=== PATIENT | male | born 1965 | race Caucasian/White ===

== ENCOUNTER 2020-05-23 09:15 | Inpatient (IN) | payer OTHER ==
[~2020-05-23] VITALS: Ht 182.9 cm; Wt 93.0 kg
--- OUTSIDE RECORDS SUMMARY | ~2020-05-23 | XMS | Encounter Summary ---
Demographics + + + | Address | [address] | | | [place] [address] | + + + | Home Phone | | + + + | Preferred Language | Unknown | + + + | Marital Status | | + + + | Zoroastrian Affiliation | Unknown | + + + | Race | Unknown | + + + | Ethnic Group | Unknown | + + + Author + + + | Author | [facility] | | | and [place] | + + + | Organization | [facility] | | | and [place] | + + + | Address | Unknown | + + + | Phone | Unavailable | + + + Support +---------+ +---------+ + | Name | Relationship | Address | Phone | +---------+ +---------+ + | Unk Unk | ECON | Unknown | | +---------+ +---------+ + Care Team Providers + +------+ + | Care Out Patient Therapist Name | Role | Phone | + +------+ + | Joseph Atkins DO | PCP | | + +------+ + Reason for Referral Evaluate & Treat (Routine) +--------+ + + + + + | Status | Reason | Specialty | Diagnoses / | Referred By | Referred To | | | | | Procedures | Contact | Contact | +--------+ + + + + + | Closed | Specialty | Sleep | Diagnoses | [facility] | | | Services | Medicine | [facility] | MD Paulette | Center [address] | | | Required | | (obstructive | [address] | [place] | | | | | sleep | [address] [place] | [place], | | | | | apnea) | [place] | [place] [address] | | | | | Procedures | [address] | Phone: | | | | | [place] [facility] | Phone: | [phone] | | | | | STUDY, | [phone] | Fax: | | | | | UNATTENDED, | Fax: | [phone] | | | | | SIMUL RECORD | [phone] | | | | | | HR/O2 | | | | | | | SAT/RESP | | | | | | | FLOW/RESP | | | | | | | EFF HST | | | +--------+ + + + + + Reason for Visit +---------+ + | Reason | Comments | +---------+ + | Consult | | +---------+ + Evaluate & Treat (Routine) +--------+--------+ + + + + | Status | Reason | Specialty | Diagnoses / | Referred By | Referred To | | | | | Procedures | Contact | Contact | +--------+--------+ + + + + | Closed | | Psychiatry & | Diagnoses | Wilbert, | [place], | | | | Neurology - | Obstructive | Joseph Leiva DO | MD [facility] | | | | Sleep | sleep apnea | [address] | | | | Medicine / | (adult) | Gael Ontiveros | [facility] | | | | Sleep | (pediatric) | [place], | [place] | | | | Medicine | consult | [place] [address] | [address] Phone: | | | | | [email or web address], no | Phone: | [phone] | | | | | ss, no | [phone] | Fax: | | | | | cpap/AO | | [phone] | | | | | Procedures | | | | | | | NEW PATIENT | | | +--------+--------+ + + + + Encounter Details +--------+---------+ + + + | Date | Type | Department | Care Team | Description | +--------+---------+ + + + | 02/12/ | Office | [facility] [place] | Paulette Peña MD | [facility] (obstructive | | 2018 | Visit | SLEEP DISORDER [address] | sleep apnea) | | | | [address] [place] | [place] | (Primary Dx) | | | | [place] [address] | [address] | | | | | [phone] | | | +--------+---------+ + + + Social History + + + +--------+------+ | Tobacco Use | Types | Packs/Day | Years | Date | | | | | Used | | + + + +--------+------+ | Former Smoker | Cigarettes | | | | + + + +--------+------+ + +---+---+---+ | Smokeless Tobacco: | | | | | Never Used | | | | + +---+---+---+ + + | Comments: he is on chantix and quit smoking recently | + + + + +---------+ + | Alcohol Use | Drinks/Week | oz/Week | Comments | + + +---------+ + | Yes | | | | + + +---------+ + + + + | Sex Assigned at | Date Recorded | | | | + + + | Not on file | | + + + documented as of this encounter Last Filed Vital Signs + + + + + | Vital Sign | Reading | Time Taken | Comments | + + + + + | Blood Pressure | 160/90 | 02/12/2018 1:20 PM | | | | | PDT | | + + + + + | Pulse | 95 | 02/12/2018 1:20 PM | | | | | PDT | | + + + + + | Temperature | - | - | | + + + + + | Respiratory Rate | 16 | 02/12/2018 1:20 PM | | | | | PDT | | + + + + + | Oxygen Saturation | 95% | 02/12/2018 1:20 PM | | | | | PDT | | + + + + + | Inhaled Oxygen | - | - | | | Concentration | | | | + + + + + | Weight | 110 kg (242 lb 8.1 | 02/12/2018 1:20 PM | | | | oz) | PDT | | + + + + + | Height | 180.3 cm (5' 11") | 02/12/2018 1:20 PM | | | | | PDT | | + + + + + | Body Mass Index | 33.82 | 02/12/2018 1:20 PM | | | | | PDT | | + + + + + documented in this encounter Patient Instructions Patient Instructions Paulette Peña MD - 02/12/2018 2:02 PM PDTFormatting of this note lanette ht be different from the original. Please: 1- Schedule your sleep study. An appointment will be made a few days after the sleep study so that we can discuss the results of the sleep study with you to determine how to best help you with your sleep issues. If you can't come to the sleep center on the night of your scheduled sleep study, please no tify us ( ). 2- Review the following sleep hygiene tips: - Awaken at nearly the same time ever day (less than 2 hours difference between work/school days and off/weekend days). Don't sleep in. - Obtain as much bright light as possible during your desired waking hours. - Minimize caffeine (coffee, tea, energy drinks, soft drinks, etc.) and limit to the hours immediately after awakening. - Eliminate or minimize smoking and alcohol consumption, especially near bedtime. - Minimize or eliminate napping (unless you are a good sleeper at night and you are really sleepy during the day). - Darken your environment an hour or two before bedtime. - Consider "unwinding" and "closing" your day about an hour before your anticipated bedtime . - Go to bed only when you are sleepy and no earlier than 9 hours before your anticipated wa ke time. - Good sleepers enjoy sleeping and know that not everyone sleeps well every night. The occa sional night of poor sleep happens to everyone and isn't something to worry about. It was very nice meeting you today and thank you for letting me take care of you. What Are Snoring and Obstructive Sleep Apnea? If you ve ever had a stuffed-up nose, you know the feeling of trying to breathe through a very narrow passageway. This is what happens in your throat when you snore. While you sleep , structures in your throat partly block your air passage. This makes the passage narrow and hard to breathe through. In some cases the entire passage may become blocked so you can t breathe at all. Then you haveobstructivesleep apnea. Snoring Obstructive sleep apnea Snoring If your throat structures are too large or the muscles relax too much during sleep, the air passage may be partly blocked for a while (temporarily). But over time the air gets past. A s air from the nose or mouth passes around this blockage, the throat structures vibrate. Thi s causes the familiar sound of snoring. This sound can be loud. Snorers may wake up others, or even themselves, during the night. Snoring gets worse as more and more of the air passage is blocked. Obstructive sleep apnea If the structurespartly orcompletely block the throat, air can t flow to the lungs at all. This is calledhypopnea (decreased breathing) orapnea (meaning no breathing ). The lungs aren t getting fresh air. So the brain tells the body to wake up just enough to tighten the muscles and unblock the air passage. With a loud gasp, breathing begins again. This process may be repeated over and over again during the night. This can make your sleep fragmentedwithlighter stagesof sleep. You won t remember waking up many times during the night. But due tolighter sleepyou will feel tired the next day. The lack of sleep a nd fresh air can also strain your lungs, heart, and other organs. This leads to problems suc h as high blood pressure, heart attack, or stroke. Problems in the nose and jaw Problems in the structure of the nose may block breathing. A crooked (deviated) septum or s wollen turbinates can make snoring worse or lead to apnea. Also, a receding jaw may make the tongue sit too far back. Then it s more likely to block the airway when you re asleep. Date Last Reviewed: 03/26/201719993307-6390 [employer]. [address] [place] [address], [place] [address]. All righ ts reserved. This information is not intended as a substitute for professional medical care. Always follow your healthcare professional's instructions. Continuous Positive Air Pressure (CPAP) A mask over the nose gently directs air into the throat to keep the airway open. Continuous positive air pressure (CPAP)uses gentle air pressure to hold the airway open. CPAP is often the most effective treatment for sleep apnea and severe snoring. It works very well for many people. But keep in mind that it can take several adjustments before the setu p is right for you. How CPAP works The CPAP machine is asmall portable pump that sits beside the bed. The pumpsends air through a hose, which is held over your nose alone, or nose and mouthby a mask.Mild air pressureis gently pushed through your airway. The air pressure nudges sagging tissues asid e. This widens the airway so you can breathe better. CPAP may be combined with other kinds o f therapy for sleep apnea. Types of air pressure treatments There are different types of CPAP. Your doctor or CPAP test lab technician will help you decide whic h type is best for you: Basic CPAPkeeps the pressure constant all night long. A bilevel device(BiPAP)providesmore pressure when you breathe in and less when you breathe out.A BiPAP machine also may be set to provide automatic breaths to maintain teddy thing if you stop breathing while sleeping. An autoCPAP deviceautomatically adjusts pressure throughout the night and in response to changes such as body position, sleep stage, and snoring. Date Last Reviewed: 03/26/201719993082-0052 [employer]. [address] [place] [id number]. All righ ts reserved. This information is not intended as a substitute for professional medical care. Always follow your healthcare professional's instructions. documented in this encounter Progress Notes Paulette Peña MD - 02/12/2018 1:30 PM PDT ID/CC: We are asked to Tom Bolton referred for consultation from Joseph Atkins for evalu ation of obstructive sleep apnea. Alejandro Bolton is a 52 y.o. year male old with history of hypertension, GERD, anxiety, an d obesity presenting with snoring, witnessed sleep apnea, and fatigue for evaluation of obst ructive sleep apnea. Mr. Davis has snored for at least 20 years and his his snoring is loud. He has been told that he stops breathing during sleep and he sometimes wakes up with gasping/choking. He has morning dry mouth and wakes up with dry mouth in the middle of the night and drinks water. He has heartburn and if he doesn't take omeprazole he can wake up with heartburn. He feels tired all the time and he has daytime sleepiness. He also has drowsy driving and can get drowsy in less than one hour drives. Denies morning headaches. He Sleeps on a flat bed and one pillow. He sleeps on his side or back. He gets average 8 hours of sleep per night. Does swing shifts and works from 2:30 PM to 11 PM. He usually goes to bed around 2 AM and falls asleep quickly. He wakes up a few times for her and once for urination, and usually goes back to sleep quickly. He wakes up around 11 AM and feels tired. On his days off. He wakes up around noon, and he goes to bed around 4 AM. Denies restless legs he has legs and feet cramps. ? Marietta Sleepiness Scale: 12 out of 24 ( score >11 clinnically significant for sleepiness ). ? - Insomnia Severity Index Score: 11 out of 28, suggesting subthreshold insomnia. 0-7 no clinically significant. 8-14 subthreshold insomnia 15-21 moderate insomnia 22-28 severe insomnia ADDITIONAL DATA: ? Sepulveda Depression Inventory: 18, consistent with mild to moderate depression ? Sepulveda Anxiety Inventory:21, moderate anxiety ? SF-36v2: Significant decline in VT and MH . PAST MEDICAL HISTORY No past medical history on file. PAST SURGICAL HISTORY No past surgical history on file. ALLERGIES No Known Allergies CURRENT MEDICATIONS Prior to Admission medications Medication Sig Start Date End Date Taking? Authorizing Provider ALPRAZolam (XANAX) 0.5 mg tablet Take 0.5 mg by mouth 3 times daily as needed for Anxiety. Yes Historical Provider, amLODIPine (NORVASC) 10 MG tablet Take 10 mg by mouth Daily. Yes Historical Provider, busPIRone (BUSPAR) 10 MG tablet Take 30 mg by mouth 3 times daily. Yes Historical Provide MD lakesha ergocalciferol (VITAMIN D-2) 50,000 units capsule Take 50,000 Units by mouth Once a week. Yes Historical Provider, lisinopril (PRINIVIL, ZESTRIL) 10 mg tablet Take 12.2 mg by mouth Daily. Yes Historical P MD anisha Loratadine 10 MG CAPS Take by mouth. Yes Historical Provider, meloxicam (MOBIC) 15 mg tablet Take 15 mg by mouth Daily. Yes Historical Provider, SOCIAL HISTORY - Lives alone. . 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 Currently takes chantix and quit 3 weeks ago - Other substances: never - Caffeine use: 1 cup of coffee per day. 2 cans of soda per day - Exercise: minimal - Eating habits: he eats mostly fast foods and package foods. Does not enough vegetables. D oes not eat fish regularly. FAMILY HISTORY No known family history of sleep apnea. REVIEW OF SYSTEMS Constitutional: + fatigue ENT: No nasal or sinus congestion. Card: No exertional substernal chest heaviness, Resp: No cough, No wheezing GI: + bloating, constipation. , + acid reflux : +nocturia MS: No back pain or neck pain Neuro: No headaches Psych: + anxiety Endocrine: No heat or cold intolerance Heme: No easy bruising or prolonged bleeding. PHYSICAL EXAMINATION BP 160/90 | Pulse 95 | Resp 16 | Ht 1.803 m (5' 11") | Wt 110 kg (242 lb 8.1 oz) | SpO 2 95% | BMI 33.82 kg/m , Neck Measurement: 18 in GEN: Well developed well nourished, pleasant, NAD HEENT: Sclerae anicteric. No ptosis. Oropharyngeal exam reveals Modified Mallampati grade3 airway with 1+ tonsils.big tongue. Tongue does not have scalloping. Thereis not retrognat hia. Patient does not have a high arched palate. CV: RRR, no m/r/g RESP: CTAB, no w/r/r EXT: No clubbing/cyanosis. NEURO: A&Ox3, speech fluent. face symmetric, uvula/tongue midline. . Normal casual gait. PSYCH: Appropriate affect. ASSESSMENT AND PLAN ROGELIO: This patient has several symptoms and risk factors for obstructive sleep apnea. I dis cussed them, and the pathophysiology of sleep apnea today, associated risks including heart attack and stroke with untreated severe sleep apnea, and association between obstructive sle ep apnea and hypertension, insulin resistance and diabetes, GERD, headaches, and mood and me brigitte problems. discussed diagnosis via polysomnography / [id number] sleep testing. Rai mahajan, I ordered a home sleep study, but informed him/her that if it was inconclusive, we will h ave to confirm it with diagnostic polysomnography. I also discussed treatment options for sleep apnea, including CPAP (gold standard), weight loss, mandibular advancement device, an d surgery. An appointment will be made a few days after the sleep study so that we can discu ss the results of the sleep study with patient. EDS: I also discussed the dangers of excessive daytime sleepiness in the context of driving or other dangerous activities. I counseled the patient to avoid all such activities when fe eling tired or sleepy. He indicated his understanding of this important recommendation. Encouraged increasing physical activity, and maintaining healthy eating habits. Discussed the importance of eating habits and diet, and that food is not just about calorie intake, an d food is information and medicine. Encouraged himto eat healthy clean foods with minimal fa st foods/processed foods: a rainbow of fruits and vegetables regularly(including root veget courtney), seeds/nuts, good protein including fish, and cut back on sugar. Thank you for the opportunity to participate in this patient's care. Portions of this chart may have been created with [employer] voice recognition software. Occasi onal wrong-word or sound-alike substitutions may have occurred due to the inherent gavin itations of voice recognition software. Please read the chart carefully and recognize, using context, where these substitutions have occurred. Jewell Sim, Medical As sisjovannyt - 02/12/2018 1:30 PM PDTFormatting of this note might be different from the origina l. 02/12/18 1300 Sepulveda Depression Inventory-II Depression Score 18 - Mild depression Insomnia Severity Index Insomnia Severity Index 11 Marietta Sleepiness Scale Sitting and reading 1 Watching TV 3 Sitting, inactive in a public place (e.g. a theatre or a meeting) 1 As a passenger in a car for an hour without a break 1 Lying down to rest in the afternoon when circumstances permit 3 Sitting and talking to someone 0 Sitting quietly after a lunch without alcohol 2 In a car, while stopped for a few minutes in traffic 1 Total score 12 SF-36v2 Score PF 49.89 RP 50.42 BP 46.68 GH 46.05 VT 25.86 SF 47.31 RE 56.17 MH 35.17 PCS 49.47 MCS 39.43 documented in this enco unter Plan of Treatment + + +--------+ + + | Name | Type | Priori | Associated Diagnoses | Order Schedule | | | | ty | | | + + +--------+ + + | * [facility] - | Outpatient | Routin | ROGELIO (obstructive | Ordered: 02/12/2018 | | AMB Referral | Referral | e | sleep apnea) | | + + +--------+ + + documented as of this encounter Visit Diagnoses + + | Diagnosis | + + | ROGELIO (obstructive sleep apnea) - Primary Obstructive sleep apnea (adult) (pediatric) | + + documented in this encounter
--- OUTSIDE RECORDS SUMMARY | ~2020-05-23 | XMS | Encounter Summary ---
Demographics + + + | Address | [address] | | | [place] [address] | + + + | Home Phone | | + + + | Preferred Language | Unknown | + + + | Marital Status | | + + + | Presybeterian Affiliation | Unknown | + + + | Race | Unknown | + + + | Ethnic Group | Unknown | + + + Author + + + | Author | [facility] | | | and [place] | + + + | Organization | [facility] | | | and [place] | + + + | Address | Unknown | + + + | Phone | Unavailable | + + + Support +---------+ +---------+ + | Name | Relationship | Address | Phone | +---------+ +---------+ + | Unk Unk | ECON | Unknown | | +---------+ +---------+ + Care Team Providers + +------+ + | Care Gambreler Name | Role | Phone | + +------+ + | Joseph Atkins DO | PCP | | + +------+ + Reason for Visit + + + | Reason | Comments | + + + | CPAP Follow Up | | + + + Encounter Details +--------+---------+ + + + | Date | Type | Department | Care Team | Description | +--------+---------+ + + + | 03/11/ | Office | [facility] | Paulette Peña MD | ROGELIO (obstructive | | 2018 | Visit | SLEEP DISORDER [address] | [address] | sleep apnea) | | | | [address] | [place] [address] [address] | (Primary Dx) | | | | [place] [address] | [address] | | | | | [phone] | | | +--------+---------+ + + + [...] + + + | Blood Pressure | 140/80 | 03/11/2018 2:42 PM | | | | | PDT | | + + + + + | Pulse | 90 | 03/11/2018 2:42 PM | | | | | PDT | | + + + + + | Temperature | - | - | | + + + + + | Respiratory Rate | 16 | 03/11/2018 2:42 PM | | | | | PDT | | + + + + + | Oxygen Saturation | 97% | 03/11/2018 2:42 PM | | | | | PDT | | + + + + + | Inhaled Oxygen | - | - | | | Concentration | | | | + + + + + | Weight | 109.5 kg (241 lb 6.5 | 03/11/2018 2:42 PM | | | | oz) | PDT | | + + + + + | Height | - | - | | + + + + + | Body Mass Index | 33.67 | 02/12/2018 1:20 PM | | | | | PDT | | + + + + + documented in this encounter Patient Instructions Patient Instructions Paulette Peña MD - 03/11/2018 3:03 PM PDTFormatting of this note lanette ht be different from the original. - We will send a prescription for CPAP machine to your home care company. - Please start using your CPAP as directed. - Follow up with TATO Flores within 1-2 weeks. - Follow up with Tre Wallace PA-C afterwards. - Insurance compliance criteria: Once you received your machine, you have 90 days in which you must use your machine for 30 consecutive days and for 70% of those 30 days you must use your machine for >= 4 hours. Continuous Positive Airway Pressure (CPAP) Your healthcare provider has prescribed continuous positive airway pressure (CPAP) therapy for you. A CPAPdevice helps you breathe better at night. The device sends air through your nose or mouth when you breathe in to keep your air passages open. CPAP is: Used most often to treat sleep apnea and some other problems. (Sleep apnea is a chronic condition with periods of sleep in which you briefly stop breathing.) Safe and very effective. But it takes time to get used to the mask. Your healthcare provider, nurse, or medical supplier will give you tips for wearing and car ing for your CPAP device. General guidelines Recommendations include the following: It's very important not togive up! It takes time to get used to wearing the mask at [facility]. Practice using your CPAP device during the day, especially whenever you take a nap. Remember, there are several different types of masks. If you can t get used to your ma sk, ask your provider or medical supply company about trying another style. If you have nasal stuffiness or dryness when using your CPAP device, talk with your prov ider or medical supply company. There are ways to ease these problems. For example, your pro vider may recommend using a moistening nasal spray. Or the medical supply [employer] may recomm end a device with a humidifier. The goal is to use yourCPAP all night, every night, during all naps, and even when you travel. Keep your mask clean. Wash it with soap and water. Be sure to rinse the mask and tubing well with water to remove any soap. Let them air-dry completely before using. Make yourself comfortable when sleeping with CPAP. Try using extra pillows. Work with your [employer] supply company so that you know how to correctly use your CPAP. The company's maintenance representative will be able to help you: Use the CPAP correctly Troubleshoot any problems that come up Learn to clean and maintain the device Adjust to regular use of the CPAP The CPAP device settings are given as centimeters of water, or cm/H2O. Each person s pres sure settings are different. Your healthcare provider will tell you what settings to use. Ne bal change your CPAP pressure setting unless your provider tells you to. CPAP cm/H20 pressure when you breathe in Date Last Reviewed: 12/25/201519999985-6643 [employer]. [address] [place] [address]. All righ ts reserved. This information is not intended as a substitute for professional medical care. Always follow your healthcare professional's instructions. documented in this encounter Progress Notes Paulette Peña MD - 03/11/2018 2:45 PM PDT The patient comes in to discuss sleep study results. My interpretation of the patient's s leep study, which I have reviewed with the patient, is as follows: Unattended, Multiparameter, Sleep Apnea Test for Alejandro Bolton performed on February 19, 2018. Identifying Information: Alejandro Bolton is a 52 y.o. male who is referred for unattended, mu lti-parameter, sleep apnea test because of probable Obstructive Sleep Apnea. He has a histor y of hypertension, GERD, anxiety, and obesitypresenting with snoring, witnessed sleep ap mehnaz, and fatigue for evaluation of obstructive sleep apnea. BMI: 34 Technical Information: The study was performed on February 19, 2018 using the [employer] d equipment with [employer] Version 9 Software. The study was hand scored and hand analyzed. The following physiologic parameters were monitored: snoring, body position, oxygen saturati on, heart rate, nasal airflow (PTAF), oral airflow (thermister) and thoracic and abdominal e ffort (RIP belts). EEG was not monitored and thus sleep staging was not performed. A sleep e fficiency of 100% was assumed for the purposes of calculating indices; this assumption can r esult in a significant underestimation of disease severity. Because EEG was not monitored, R espiratory Effort Related Arousals could not be enumerated; this can also result in underest imation of disease severity. The sensitivity for Obstructive Sleep Apnea of this type of flex dy is high but the specificity is low. Definitions (The AASM Manual for the Scoring of Sleep and Associated Events, Version 2.3; 2 016): Apnea: There is a drop in the peak signal excursion by 90% or greater of pre-rich nt baseline using an oronasal thermal sensor, or an alternative apnea sensor and the duratio n of the 90% or greater drop in sensor signal is greater than or equal to 10 seconds. Obstructive Apnea: Event associated with continued or increased inspi ratory effort throughout the entire period of absent airflow. Central Apnea: Event associated with absent inspiratory effort throug hout the entire period of absent airflow. Because EEG is not monitored, Central Apneas canno t be scored with any degree of reliability on this type of sleep study. Mixed Apnea: Event associated with absent inspiratory effort in the i nitial portion of the event followed by resumption of inspiratory effort during the second p ortion of the event. Because EEG is not monitored, mixed apneas are not reliably scored on t his type of study. Hypopnea: The peak signal excursions drop by 30% or more of pre-event baseline u sing nasal pressure (diagnostic study), PAP device flow (titration study), or an alternative hypopnea sensor (diagnostic study). The duration of the 30% or greater drop in signal excur naman must last for 10 seconds or longer. The event is associated with a 3% or greater oxygen desaturation from pre-event baseline or the event is associated with an arousal. Respiratory Event Related Arousal: Because EEG is not recorded, Respiratory Even t Related Arousal's cannot be enumerated. The Respiratory Event Index (WING) is the term used to represent the frequency of apneas and hypopneas derived from Home Sleep Apnea Testing(HSAT). It is a surrogate for AHI. Results: Data collection commenced at 02:52 on 2017 and data collection terminated at 11:14 on February 19, 2018. During the 501.5 minutes of index study time there were 144 obst ructive apneas, 2 central apneas, 1 mixed apneas and 341 hypopneas. The WING was 58.4 which i s severely elevated. Relative time in supine position was 57.8%. The events were worsened in the supine position with WING of 73.2. However, non-supine WING was also severe at 38.. Mean oxygen oxygen saturation was 91%, oneil saturation was 69%, and patient spent 25.5% of time( 125.3 minutes) below 90%. 3 %Oxygen desaturation index was 59.5and was severely eleva jie. Average heart rate was 91 BPM. Interpretation: This home sleep apnea testing (HSAT) showed sleep apnea which was obstructi ve in nature, and it was severe in frequency of events, and severe in frequency of desatura tions. Oneil saturation was 69%, and patient spent 125.3 minutes of time below 90%. The flex dy was technically an adequate study. Recommendations: 1. A trial of auto-CPAP at 5-20 cm H2O. 2. Weight management. Today, I discussed the above results in detail with patient. he is interested in trial of C PAP. Insurance compliance criteria was discussed. Also again encouraged him to maintain regular physical activity and healthy eating habits. Vitals: 03/11/18 1442 BP: 140/80 Pulse: 90 Resp: 16 PainSc: 0 - No pain Plan: Start auto CPAP at 5-20 cm H2O with patient's preference mask. Follow-up with TATO Velasquez in 1-2 weeks after starting Pap therapy. Follow-up with Tre Wallace PA-C afterwards. I spent 15 minutes face to face with the patient, with over 50% spent in counseling and/or coordination of care regarding sleep apnea. documented in this enco unter Plan of Treatment Not on filedocumented as of this encounter Visit Diagnoses + + | Diagnosis | + + | ROGELIO (obstructive sleep apnea) - Primary Obstructive sleep apnea (adult) (pediatric) | + + documented in this encounter"
--- OUTSIDE RECORDS SUMMARY | ~2020-05-23 | XMS | Encounter Summary ---
Demographics + + + | Address | [address] | | | [place] [address] | + + + | Home Phone | | + + + | Preferred Language | Unknown | + + + | Marital Status | | + + + | Muslim Affiliation | Unknown | + + + | Race | White | + + + | Ethnic Group | Not or | + + + Author + + + | Organization | Unknown | + + + | Address | Unknown | + + + | Phone | Unavailable | + + + Support + + +---------+ + | Name | Relationship | Address | Phone | + + +---------+ + | Lora Bolton | ECON | Unknown | | + + +---------+ + Care Team Providers + +------+ + | Care Heel Washer Stringing Machine Operator Name | Role | Phone | + +------+ + PCP | Unavailable | + +------+ + Encounter Details +--------+ + + + + | Date | Type | Department | Care Team | Description | +--------+ + + + + | 08/04/ | Results | | Tre Saavedra | | | 2002 | Only | | [address] | | | | | | [place], | | | | | | [place] [address] | | +--------+ + + + + Social History + +-------+ +--------+------+ | Tobacco Use | Types | Packs/Day | Years | Date | | | | | Used | | + +-------+ +--------+------+ | Never Assessed | | | | | + +-------+ +--------+------+ + + + | Sex Assigned at | Date Recorded | | | | + + + | Not on file | | + + + documented as of this encounter Plan of Treatment Not on filedocumented as of this encounter Procedures + +--------+ + + + | Procedure Name | Priori | Date/Time | Associated Diagnosis | Comments | | | ty | | | | + +--------+ + + + | COMPLETE METABOLIC | Routin | 08/04/2003 | | Results for this | | SET | e | 9:20 AM | | procedure are in the | | (NA,K,CL,CO2,BUN,CRE | | PST | | results section. | | AT,GLUC,CA,AST,ALT,B | | | | | | LAVERNE TOTAL,ALK | | | | | | PHOS,ALB,PROT TOTAL) | | | | | + +--------+ + + + | CBC ONLY | Routin | 08/04/2003 | | Results for this | | | e | 9:20 AM | | procedure are in the | | | | PST | | results section. | + +--------+ + + + documented in this encounter Results CBC ONLY WITH PLATELET (08/04/2003 9:20 AM PST) + +---------+ + + + | Component | Value | Ref Range | Performed | Pathologist | | | | | At | Signature | + +---------+ + + + | WHITE CELL | 5.4 | 4.4 - 11.0 K/cu | [facility] | | | COUNT | | mm | DEPARTMENT | | | | | | OF | | | | | | PATHOLOGY | | + +---------+ + + + | RED CELL | 5.18 | 4.20 - 5.90 | [facility] | | | COUNT | | M/cu mm | DEPARTMENT | | | | | | OF | | | | | | PATHOLOGY | | + +---------+ + + + | HEMOGLOBIN | 15.9 | 13.0 - 17.5 | [facility] | | | | | g/dL | DEPARTMENT | | | | | | OF | | | | | | PATHOLOGY | | + +---------+ + + + | HEMATOCRIT | 46.9 | 38.0 - 50.4 % | [facility] | | | | | | DEPARTMENT | | | | | | OF | | | | | | PATHOLOGY | | + +---------+ + + + | MCV | 90.6 | 80.0 - 96.0 fL | [facility] | | | | | | DEPARTMENT | | | | | | OF | | | | | | PATHOLOGY | | + +---------+ + + + | MCH | 30.7 | 28.5 - 32.3 pg | [facility] | | | | | | DEPARTMENT | | | | | | OF | | | | | | PATHOLOGY | | + +---------+ + + + | MCHC | 33.8 | 33.4 - 35.5 | [facility] | | | | | g/dL | DEPARTMENT | | | | | | OF | | | | | | PATHOLOGY | | + +---------+ + + + | RDW | 12.5 | 11.5 - 15.0 % | [facility] | | | | | | DEPARTMENT | | | | | | OF | | | | | | PATHOLOGY | | + +---------+ + + + | PLATELET | 253 | 150 - 400 K/cu | [facility] | | | COUNT | | mm | DEPARTMENT | | | | | | OF | | | | | | PATHOLOGY | | + +---------+ + + + | MPV | 7.0 (L) | 7.4 - 10.4 fL | [facility] | | | | | | DEPARTMENT | | | | | | OF | | | | | | PATHOLOGY | | + +---------+ + + + + + | Specimen | + + | | + + + + + + + | Performing | Address | City/State/Zipcode | Phone Number | | Organization | | | | + + + + + | [facility] | [address] | [place] [address] | | | PATHOLOGY | [address] | | | + + + + + | [facility] | [address] | [place] [address] | | | PATHOLOGY | [address] | | | + + + + + COMP METABOLIC SET (08/04/2003 9:20 AM PST) + +---------+ + + + | Component | Value | Ref Range | Performed | Pathologist | | | | | At | Signature | + +---------+ + + + | GLUCOSE, | 114 (H) | 65 - 110 mg/dL | [facility] | | | PLASMA | | | DEPARTMENT | | | (LAB) | | | OF | | | | | | PATHOLOGY | | + +---------+ + + + | BUN, PLASMA | 9 | 6 - 20 mg/dL | [facility] | | | (LAB) | | | DEPARTMENT | | | | | | OF | | | | | | PATHOLOGY | | + +---------+ + + + | CREATININE | 0.9 | 0.7 - 1.3 mg/dL | [facility] | | | PLASMA | | | DEPARTMENT | | | (LAB) | | | OF | | | | | | PATHOLOGY | | + +---------+ + + + | TOTAL | 7.9 | 6.1 - 7.9 g/dL | [facility] | | | PROTEIN, | | | DEPARTMENT | | | PLASMA | | | OF | | | (LAB) | | | PATHOLOGY | | + +---------+ + + + | ALBUMIN, | 4.2 | 3.5 - 4.7 g/dL | [facility] | | | PLASMA | | | DEPARTMENT | | | (LAB) | | | OF | | | | | | PATHOLOGY | | + +---------+ + + + | CALCIUM, | 9.5 | 8.5 - 10.5 | [facility] | | | PLASMA | | mg/dL | DEPARTMENT | | | (LAB) | | | OF | | | | | | PATHOLOGY | | + +---------+ + + + | BILIRUBIN | 1.1 | 0.3 - 1.2 mg/dL | [facility] | | | TOTAL | | | DEPARTMENT | | | | | | OF | | | | | | PATHOLOGY | | + +---------+ + + + | ALK PHOS | 97 | 53 - 128 U/L | [facility] | | | | | | DEPARTMENT | | | | | | OF | | | | | | PATHOLOGY | | + +---------+ + + + | AST(SGOT) | 39 | 15 - 41 U/L | [facility] | | | | | | DEPARTMENT | | | | | | OF | | | | | | PATHOLOGY | | + +---------+ + + + | SODIUM, | 137 | 136 - 145 | [facility] | | | PLASMA | | mmol/L | DEPARTMENT | | | (LAB) | | | OF | | | | | | PATHOLOGY | | + +---------+ + + + | POTASSIUM, | 3.9 | 3.5 - 5.1 | [facility] | | | PLASMA | | mmol/L | DEPARTMENT | | | (LAB) | | | OF | | | | | | PATHOLOGY | | + +---------+ + + + | CHLORIDE, | 102 | 98 - 107 mmol/L | [facility] | | | PLASMA | | | DEPARTMENT | | | (LAB) | | | OF | | | | | | PATHOLOGY | | + +---------+ + + + | TOTAL CO2, | 29 | 23 - 29 mmol/L | [facility] | | | PLASMA | | | DEPARTMENT | | | (LAB) | | | OF | | | | | | PATHOLOGY | | + +---------+ + + + | ALT (SGPT) | 70 (H) | 13 - 48 U/L | [facility] | | | | | | DEPARTMENT | | | | | | OF | | | | | | PATHOLOGY | | + +---------+ + + + + + | Specimen | + + | | + + + + + + + | Performing | Address | City/State/Zipcode | Phone Number | | Organization | | | | + + + + + | [facility] | [address] | [place] [address] | | | PATHOLOGY | [address] | | | + + + + + | [facility] | [address] | [place] [address] | | | PATHOLOGY | [address] | | | + + + + + documented in this encounter Visit Diagnoses Not on filedocumented in this encounter"
--- OUTSIDE RECORDS SUMMARY | ~2020-05-23 | XMS | Encounter Summary ---
Demographics + + + | Address | [address] | | | [place] [address] | + + + | Home Phone | | + + + | Preferred Language | Unknown | + + + | Marital Status | | + + + | Islam Affiliation | Unknown | + + + [...] Team Providers + +------+ + | Care Actuarial Consultant Name | Role | Phone | + +------+ + PCP | Unavailable | + +------+ + Encounter Details +--------+ + + + + | Date | Type | Department | Care Team | Description | +--------+ + + + + | 08/04/ | Office | | Report, Outpatient | Progress Note | | 2002 | Visit-Trans | | Consultation | | | | cribed | | | | +--------+ + + + [...] + + documented as of this encounter Progress Notes Interface, Diesel Locomotive Firer/Fireman In - 01/21/2006 3:05 AM PDT REFERRED FROM AND FAXED TO: Zeeshan Pace M.D. FAX NO: [phone] REFERRED TO: Tre Saavedra M.D. Colon and Rectal Surgery ATTENDING PHYSICIAN: Tre Saavedra M.D. 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 HISTORY OF PRESENT ILLNESS: Mr. Bolton is a 38-year-old gentleman who has had anal bleeding for a year. 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 The patient's symptoms slightly improved but he had persistent bleeding. He was tried on conservative measures including sitz baths, Metamucil and Nitroglycerin ointment but the fissure persisted. On June 16, 2003 he underwent a left lateral sphincterotomy, hemorrhoid ligation and cauterization of the fissure. Unfortunately he has persistent bleeding and occasional purulent drainage per rectum. He does not have any significant pain with defecation. He remains unhealed and is referred for evaluation and treatment. PAST MEDICAL HISTORY: GE reflux disease. CURRENT MEDICATIONS: Nexium once a day. ALLERGIES: None. SURGICAL HISTORY: As above. REVIEW OF SYSTEMS: He is a nonsmoker. He is with two children and lives in [place]. FAMILY HISTORY: Negative for colorectal cancer or inflammatory bowel disease. His mother had breast cancer and two of his sisters had JET DYEING MACHINE TENDER cancers, all of whom are living. Review of systems is otherwise negative. PHYSICAL EXAM: Patient is a well-nourished, well-developed male in no distress. Weight, 210 lb. Digital rectal examination was performed and demonstrates a chronic posterior anal ulcer. It does not appear to be a classic idiopathic anal fissure. Its edges are fairly indistinct and it is soft throughout. Direct palpation does not illicit significant tenderness. He does not have significant anal sphincter spasm. He has normal squeeze tone. I do not see an obvious external opening but the posterior anal canal is slightly boggy. ASSESSMENT: Chronic posterior anal ulcer. Biopsies from his colonoscopy failed to show any evidence of inflammatory bowel disease and he has no symptoms of diarrhea to raise any additional concerns about Crohn's disease. I suspect that this is either a persistent anal fissure or an occult smoldering sinus in towards the deep postanal space. Plan is to perform examination under anesthesia tomorrow. Based on the findings I will fix an anal fissure with either a repeat internal sphincterotomy or a sliding anoderm advancement flap from the outside. If this is a fistula, I will treat it based on its anatomy, which may require a staged procedure with a partial sphincterotomy and seton, followed several months later by a completion fistulotomy, were this to be a deep postanal space fistula. PARQ was performed with the patient. The risks include, but are not limited to, bleeding, infection, disturbances, incontinence, inability to identify the etiology of his symptoms and recurrence. The patient currently has no incontinence but understands the above risks and is willing to proceed. Bowel prep instructions are provided to the patient. I will order a CBC, CMP and have him go through the preadmission testing clinic later today. Tre Saavedra M.D. [id number] cc: ZEESHAN PACE MD [address] [facility] [place] [id number] signed by Interface, Diesel Locomotive Firer/Fireman In at 01/21/2006 3:0 5 AM PDTdocumented in this encounter Plan of Treatment Not on filedocumented as of this encounter Visit Diagnoses Not on filedocumented in this encounter"
--- OUTSIDE RECORDS SUMMARY | ~2020-05-23 | XMS | Encounter Summary ---
Demographics + + + | Address | [address] | | | [place] [address] | + + + | Home Phone | | + + + | Preferred Language | Unknown | + + + | Marital Status | | + + + | Orthodox Affiliation | Unknown | + + + | Race | Unknown | + + + | Ethnic Group | Unknown | + + + Author + + + | Author | [facility] | | | and [place] | + + + | Organization | [facility] | | | and [...] Team Providers + +------+ + | Care Eligibility Analyst Name | Role | Phone | + +------+ + | Joseph Atkins DO | PCP | | + +------+ + Reason for Visit + + + | Reason | Comments | + + + | CPAP Follow Up | Sleep Resource | + + + Encounter Details +--------+ + + + + | Date | Type | Department | Care Team | Description | +--------+ + + + + | 04/01/ | Clinical | [facility] | Paulette Peña MD | ROGELIO (obstructive | | 2018 | Support | SLEEP DISORDER [address] | [address] | sleep apnea) | | | | [address] [place] | [place] | (Primary Dx) | | | | [place] [address] | [address] | | | | | [phone] | | | +--------+ + + + + Social History + + [...] + + + | Blood Pressure | 124/64 | 04/01/2018 1:43 PM | | | | | PDT | | + + + + + | Pulse | 89 | 04/01/2018 1:43 PM | | | | | PDT | | + + + + + | Temperature | - | - | | + + + + + | Respiratory Rate | 16 | 04/01/2018 1:43 PM | | | | | PDT | | + + + + + | Oxygen Saturation | 98% | 04/01/2018 1:43 PM | | | | | PDT | | + + + + + | Inhaled Oxygen | - | - | | | Concentration | | | | + + + + + | Weight | 109.1 kg (240 lb 8.4 | 04/01/2018 1:43 PM | | | | oz) | PDT | | + + + + + | Height | 182.9 cm (6') | 04/01/2018 1:43 PM | | | | | PDT | | + + + + + | Body Mass Index | 32.62 | 04/01/2018 1:43 PM | | | | | PDT | | + + + + + documented in this encounter Progress Notes Timo Evans Neurodiagnostic Tech - 04/01/2018 2:00 PM PDTFormatting of this note migh t be different from the original. Clinical Sleep Support Visit Patient:Alejandro Bolton Date of :1965 Encounter Date: 04/01/2018 Reason for visit: Chief Complaint Patient presents with CPAP Follow Up Sleep Resource Patient was last seen in our clinic on 03/11/[address] Peña, referred to us by Dr. Atkins . PAP was ordered on 03/11/2018 from [facility]. Patient has been using PAP for 15 out of 15 nights, wearing the ResMed S-10 auto PAP with settings of 5 to 20, wearing the N-20 ma sk. 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 Arrives complaining of nasal dryness and inside nare soreness. We reviewed the humidity and I advised him to turn his hose and level up from 73/3 to 81/4. He agrees but is going t o go up slowly for adaptation. His mask fit very well, application and fit test were both go od. No other issues today. ~ Overall leak is 12 ~ Compliance >4 hours =86% with AHI of 2.4 ~ Average daily usage of 6:06 Original date of study was on 02/19/2018 that showed an AHI of 58.4 with a O2 Oneil of 69% w ith 125.3 minutes < 90%. Sleep hygiene reviewed with the patient included study results, all PAP unit instructions i ncluding humidity and cleaning, sleep wake cycles and a recommendation to wear PAP at all ti mes during his sleep. Plan for continuous PAP use: 1. Wear PAP any time you are sleeping 2. Continue with PAP indefinitely 3. Follow up with Tre THAYER in 4 weeks (due to schedule) with equipment Timo Evans RPSGT CSE Lisa new in this encounter Plan of Treatment Not on filedocumented as of this encounter Visit Diagnoses + + | Diagnosis | + + | ROGELIO (obstructive sleep apnea) - Primary Obstructive sleep apnea (adult) (pediatric) | + + documented in this encounter"
--- OUTSIDE RECORDS SUMMARY | ~2020-05-23 | XMS | Encounter Summary ---
Demographics + + + | Address | [address] | | | [place] [address] | + + + | Home Phone | | + + + | Preferred Language | Unknown | + + + | Marital Status | | + + + | Restorationism Affiliation | Unknown | + + + | Race | Unknown | + + + | Ethnic Group | Unknown | + + + Author + + + | Author | [facility] | | | and [place] | + + + | Organization | [facility] | | | and [...] Team Providers + +------+ + | Care Mentally Impaired Teacher Name | Role | Phone | + [...] Description | +--------+---------+ + + + | 10// | Office | [facility] | Tre Wallace PA | ROGELIO on CPAP (Primary | | 2018 | Visit | SLEEP DISORDER [address] | [address] | Dx) | | | | [address] [place] | [place] | | | | | [place] [address] | [address] | | | | | [phone] | | | +--------+---------+ + + + [...] + + + | Blood Pressure | 130/78 | 05/27/2018 1:54 PM | | | | | PDT | | + + + + + | Pulse | 79 | 05/27/2018 1:54 PM | | | | | PDT | | + + + + + | Temperature | - | - | | + + + + + | Respiratory Rate | 16 | 05/27/2018 1:54 PM | | | | | PDT | | + + + + + | Oxygen Saturation | 98% | 05/27/2018 1:54 PM | | | | | PDT | | + + + + + | Inhaled Oxygen | - | - | | | Concentration | | | | + + + + + | Weight | 112.4 kg (247 lb | 05/27/2018 1:54 PM | | | | 12.8 oz) | PDT | | + + + + + | Height | - | - | | + + + + + | Body Mass Index | 33.61 | 04/01/2018 1:43 PM | | | | | PDT | | + + + + + documented in this encounter Progress Notes Tre Wallace PA - 05/27/2018 2:00 PM PDT Subjective: Patient ID: Alejandro Bolton is a 53 y.o. male. HPI last office visit: 04/01/2018 date of HST: 02/19/2018 AHI: 58.4 RDI: O2%: 69% with 125.3 minutes below 90% Machine type: ResMed AirSense 10 Mask type: ResMed AirFit N20 nasal mask DME: [facility] [place] pressure: 5-20 cm Median: 10.1 cm 95%: 12.8 cm maximum: 13.1 cm Nights using CPAP: 30/30 % of nights >4 hours: 86% average usage (all nights): 5:26 average usage (nights used): 5:26 AHI: 1.3 Danyel comes in for CPAP compliance. He is doing well with his CPAP, wearing it regularly fo r the duration of his sleep. He has not had much difficulty adjusting to his mask, the pres sure or the process of using CPAP. He is sleeping better and feels more rested with more en ergy during the day. He says he has known that he has had apnea for years, but waited to be tested until recently. He is happy that he is now sleeping well. 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 He does not have any questions or concerns. We went through each of the settings on the CPAP, to ensure that there is a good understand ing of how to make changes to temperature, humidity and/or the ramp. He is comfortable with his current settings and is now comfortable making adjustments to the settings, if necessar y. I have discussed the download in detail. This shows that his sleep apnea is controlled, wi th an AHI of 1.3. It also shows that his leaks are controlled. It shows that he is wearing his CPAP >4 hours for 86% of the nights during 30 consecutive nights. Review of Systems Objective: BP 130/78 | Pulse 79 | Resp 16 | Wt 112.4 kg (247 lb 12.8 oz) | SpO2 98% | BMI 33.61 k g/m Physical Exam Assessment: Problem #1: OBSTRUCTIVE SLEEP APNEA (ECX10-F16.33) This is controlled with CPAP. He is doing well with his CPAP compliance. He has used his CPAP >4 hours for 86% of the nights for 30 consecutive nights. Plan: 1. He is to continue with CPAP indefinitely. I will follow up again in 3 months, sooner prn. At that time we will reassess with all jose ropriate paperwork. Twenty-five minutes were spent [id number], with the majority of time spent in counseling. Tre Wallace PA-C cc: Joseph Atkins DO documented in this enco unter Plan of Treatment Not on filedocumented as of this encounter Visit Diagnoses + + | Diagnosis | + + | ROGELIO on CPAP - Primary Obstructive sleep apnea (adult) (pediatric) | + + documented in this encounter"
--- OUTSIDE RECORDS SUMMARY | ~2020-05-23 | XMS | Encounter Summary ---
Demographics + + + | Address | [address] | | | [place] [address] | + + + | Home Phone | | + + + | Preferred Language | Unknown | + + + | Marital Status | | + + + | Scientology Affiliation | Unknown | + + + | Race | Unknown | + + + | Ethnic Group | Unknown | + + + Author + + + | Author | [facility] | | | and [place] | + + + | Organization | [facility] | | | and [...] Team Providers + +------+ + | Care Entertainment Usher Name | Role | Phone | + +------+ + | Allyson Haro | PCP | | + +------+ + Reason for Visit + + + | Reason | Comments | + + + | CPAP Follow Up | | + + + Encounter Details +--------+ + + + + | Date | Type | Department | Care Team | Description | +--------+ + + + + | 04/30/ | Virtual | [facility] | Ellie Goldstein | Obstructive sleep | | 2019 | Office | SLEEP DISORDER [address] | [address] | apnea treated with | | | Visit | [address] [place] [place] | [address] [place] | continuous positive | | | | [place] [address] | [place] [address] | airway pressure | | | | [phone] | [phone] | (CPAP) | | | | | | | +--------+ + + [...] + documented as of this encounter Progress Ellie Delgado, JOSE - 12/24/2019 2:30 PM PDTFormatting of this note might be diff erent from the original. [facility] [place] [place] [address] Ref: Joseph Atkins, DO CC: No chief complaint on file. History of the Present Illness:This is a 54 y.o. male who is following up after last seein issac [place] December 10, 2018. Other significant medical issues include hypertension, GERD, an xiety, and obesity. The patient's records are reviewed. The patient is interviewed via telep pravin from his home in [place], [place]. The patient verbally confirmed his choice to initi ate care by telephone due to the coronavirus pandemic and gave consent to receive care by giuliana jimenez. [employer] air view compliance report: Mr. Bolton uses device for 341 of the past 365 days (93%). He uses device for greater than or equal to 4 hours for 229 days (63%). He uses device for less than 4 hours for 112 days ( 31%). His average usage on total days is 4 hours 41 minutes. His average usage on days use d is 5 hours 1 minute. His median pressure is 9.4 cm H2O, the 95th percentile is 11.4, and the maximum is 12.6. His median leak is 11.7 L/min, 95th percentile is 32.3, and maximum wa s 48.5. His AHI is 1.7. Assessment: Mr. Bolton does not use his device when he is feeling congested. He has environ mental allergies to trouble him. He has been taking Flonase as needed. I discussed with danay dill the need to take Flonase daily to cover for maximum benefit. He is working with [facility] to get his replacement supplies. He has been satisfied with the service. He does not replace his parts as often as recommended. Discussed with danay dill how the peripherals have a lifespan and need to be replaced regularly to avoid excessive l eaks. He has occasional issues with leaks. He combats them by tightening his headgear. The patient is sleeping well. He is comfortable using CPAP and no longer takes it off with out realizing in the middle of the night. We discussed the download in detail. The downloa d shows that his sleep apnea is well controlled as well as his leaks. Today, 15 minutes were spent with the patient via telephone; the majority of the time was s pent counseling regarding CPAP usage. Plan: The patient will continue CPAP indefinitely. He will continue to work with [facility] to obtain replacement parts for his device. He will follow-up with us charlene laird 1 year or sooner as needed. Patient Active Problem List Diagnosis Anxiety Arthritis of hand Cramps of lower extremity Family history of allergic disorder Family history of arthritis Family history of cancer Family history of stroke Family history of malignant neoplasm of trachea, bronchus, and lung Fatigue Gastroesophageal reflux disease Genital herpes simplex Hypertensive disorder Impotence Insomnia Male hypogonadism Pain in wrist Spasm of back muscles Suprapubic pain Pain in thumb joint with movement Tinea cruris Tobacco user Upper respiratory infection Parts of this note were dictated using [employer] voice recognition software. Occasional wrong - word or sound-alike substitutions may have occurred due to the inherent limitations of [employer]ar[employer] ce recognition software. Please read the chart carefully and recognize, using contextsahara these substitutions have occurred. documented in this encounter Plan of Treatment Not on filedocumented as of this encounter Visit Diagnoses + + | Diagnosis | + + | Obstructive sleep apnea treated with continuous positive airway pressure (CPAP) | + + documented in this encounter"
--- OUTSIDE RECORDS SUMMARY | ~2020-05-23 | XMS | Encounter Summary ---
Demographics + + + | Address | [address] | | | [place] [address] | + + + | Home Phone | | + + + | Preferred Language | Unknown | + + + | Marital Status | | + + + | Oriental Orthodox Affiliation | Unknown | + + [...] Team Providers + +------+ + | Care Network Cable Installer Name | Role | Phone | + [...] Description | +--------+---------+ + + + | 04/17/ | Office | [facility] | Tre Wallace PA | ROGELIO on CPAP (Primary | | 2019 | Visit | SLEEP DISORDER [address] | [address] | Dx) | | | | [address] [place] | [place] | | | | | [place] [address] | [address] | | | | | [phone] | | | +--------+---------+ + + + [...] + + + | Blood Pressure | 132/90 | 12/10/2018 2:41 PM | | | | | PDT | | + + + + + | Pulse | 81 | 12/10/2018 2:41 PM | | | | | PDT | | + + + + + | Temperature | - | - | | + + + + + | Respiratory Rate | 16 | 12/10/2018 2:41 PM | | | | | PDT | | + + + + + | Oxygen Saturation | 98% | 12/10/2018 2:41 PM | | | | | PDT | | + + + + + | Inhaled Oxygen | - | - | | | Concentration | | | | + + + + + | Weight | 110.2 kg (242 lb | 12/10/2018 2:41 PM | | | | 15.2 oz) | PDT | | + + + + + | Height | - | - | | + + + + + | Body Mass Index | 32.95 | 04/01/2018 1:43 PM | | | | | PDT | | + + + + + documented in this encounter Progress Notes Tre Wallace PA - 12/10/2018 3:00 PM PDT Subjective: Patient ID: Alejandro Bolton is a 53 y.o. male. HPI last office visit: 05/27/2018 date of HST: 02/19/2018 AHI: 58.4 RDI: O2%: 69% with 125.3 minutes below 90% Machine type: ResMed AirSense 10 Mask type: ResMed AirFit N20 nasal mask DME: [facility] [place] pressure: 5-20 cm Median: 10.1 cm 95%: 12.2 cm maximum: 13.5 cm Nights using CPAP: 194/197 % of nights >4 hours: 86% 59% average usage (all nights): 5:26 4:24 average usage (nights used): 5:26 4:29 AHI: 1.4 Danyel comes in for CPAP compliance. He is doing pretty well with his CPAP usage. He is sle eping better and feels more rested with more energy during the day. He says he has known th at he has had apnea for years, but waited to be tested until recently. 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 He is taking off his mask without knowing it on many nights. He is sleeping better and feels more rested with more energy during the day, even when he does n't wear it for the duration of his sleep. He thinks he may take off his mask because of le aks when moving. We discussed when he is able to replace his equipment. We also discussed the recommended cleaning schedule for his equipment. I have discussed the download and results of the paperwork in detail. He is unchanged or i mproved in nearly all categories, with no areas of concern. The download shows that his sle ep apnea is controlled, with an AHI of 1.4. It also shows that his leaks are controlled. Review of Systems Objective: BP 132/90 | Pulse 81 | Resp 16 | Wt 110.2 kg (242 lb 15.2 oz) | SpO2 98% | BMI 32.95 k g/m Physical Exam Assessment: Problem #1: OBSTRUCTIVE SLEEP APNEA ([id number]-G14.33) This is controlled with CPAP. He is wearing his CPAP regularly, but takes off his mask dur ing the night without knowing it on many nights. Plan: 1. He is to continue with CPAP indefinitely. 2. I have recommended that he work toward wearing his CPAP 100% of the time he is asleep. 3. Touch base with medical supplier twice per year to ensure that all equipment is satisfa ctory. I will follow up again in 1 year, sooner prn. At that time we will reassess with all appro priate paperwork. Fifteen minutes were spent [id number], with the majority of time spent in counseling. Tre Wallace PA-C cc: Joseph Atkins DO ewell Woods, Medical As sistant - 12/10/2018 3:00 PM PDTFormatting of this note might be different from the origina l. 12/10/18 1400 [place] Depression Inventory-II Depression Score 15 - Mild depression Insomnia Severity Index Insomnia Severity Index 10 Elverta Sleepiness Scale 1. Sitting and reading 2 2. Watching TV 3 3. Sitting, inactive in a public place (e.g. a theatre or a meeting) 2 4. As a passenger in a car for an hour without a break 1 5. Lying down to rest in the afternoon when circumstances permit 3 6. Sitting and talking to someone 1 7. Sitting quietly after a lunch without alcohol 2 8. In a car, while stopped for a few minutes in traffic 1 Total score 15 SF-36v2 Score PF 44.15 RP 52.66 BP 51.51 GH 40.35 VT 31.8 SF 42.3 RE 52.69 MH 40.4 PCS 47.66 MCS 41.17 documented in this enco unter Plan of Treatment Not on filedocumented as of this encounter Visit Diagnoses + + | Diagnosis | + + | ROGELIO on CPAP - Primary Obstructive sleep apnea (adult) (pediatric) | + + documented in this encounter"
--- OUTSIDE RECORDS SUMMARY | ~2020-05-23 | XMS | Clinical Summary ---
Demographics + + + | Address | [address] | | | [place] [address] | + + + | Home Phone | | + + + | Preferred Language | Unknown | + + + | Marital Status | | + + + | Lutheran Affiliation | Unknown | + + + [...] Team Providers + +------+ + | Care Senior Analysis Specialist Name | Role | Phone | + +------+ + PCP | Unavailable | + +------+ + Source Comments [facility] is fully live on both EpicCare Ambulatory and EpicCare InPatient.[facility] Allergies Not on File Medications Not on file Active Problems Not on file Social History + +-------+ +--------+------+ | Tobacco [...] on file | | + + + Last Filed Vital Signs Not on file Plan of Treatment + + +-------+ + | Health Maintenance | Due Date | Last | Comments | | | | Done | | + + +-------+ + | Influenza (Flu) | | | | | vaccination (#1) | 0 | | | + + +-------+ + | Pneumococcal | Aged Out | | No longer eligible based on patient's age | | vaccination | | | to complete this topic | + + +-------+ + Results Not on filefrom Last 3 Months"
--- OUTSIDE RECORDS SUMMARY | ~2020-05-23 | XMS | Encounter Summary ---
Demographics + + + | Address | [address] | | | [place] [address] | + + + | Home Phone | | + + + | Preferred Language | Unknown | + + + | Marital Status | | + + + | Anabaptism Affiliation | Unknown | + + + | Race | Unknown | + + + | Ethnic Group | Unknown | + + + Author + + + | Author | [facility] | | | and [place] | + + + | Organization | [facility] | | | and [...] Team Providers + +------+ + | Care Boxing And Pressing Supervisor Name | Role | Phone | + +------+ + | Joseph Atkins DO | PCP | | + +------+ + Reason for Visit + +--------+ + | Reason | Onset | Comments | | | Date | | + +--------+ + | Follow-up | 10/21/ | | | | 2020 | | + +--------+ + Encounter Details +--------+ + + + + | Date | Type | Department | Care Team | Description | +--------+ + + + + | 10/21/ | Telephone | [facility] | Tre Wallace PA | Follow-up | | 2020 | | SLEEP DISORDER [address] | [address] | | | | | [address] [place] | [place], [place] | | | | | [place] [address] | [address] | | | | | [phone] | | | +--------+ + + + [...] + + documented as of this encounter Miscellaneous Notes Telephone Encounter - Jewell Woods Horse Racer - 11/03/2019 1:07 PM PDTCalled the pa tient and left a message to call us back. I will try back in a few days. Electronically sign ed by Jewell Woods Horse Racer at 11/03/2019 1:08 PM PDTTelephone Encounter - Casey Woods, Horse Racer - 10/21/2019 2:27 PM PSTCalled the patient to schedule his one year follow up with [facility] and left a message to call us back. I will try back in a few days. docum ented in this encounter Plan of Treatment Not on filedocumented as of this encounter Visit Diagnoses Not on filedocumented in this encounter"
--- OUTSIDE RECORDS SUMMARY | ~2020-05-23 | XMS | Encounter Summary ---
Demographics + + + | Address | [address] | | | [place] [address] | + + + | Home Phone | | + + + | Preferred Language | Unknown | + + + | Marital Status | | + + + | Denominational Affiliation | Unknown | + + + | Race | Unknown | + + + | Ethnic Group | Unknown | + + + Author + + + | Author | [facility] | | | and [place] | + + + | Organization | [facility] | | | and [...] Team Providers + +------+ + | Care Youth Care Professional Name | Role | Phone | + +------+ + | Joseph Atkins DO | PCP | | + +------+ + Reason for Visit Evaluate & Treat (Routine) +--------+ + + [...] | (obstructive | [address] | [place] | | | | | sleep | [place] | [place], | | | | | apnea) | [place] | [place] [address] | | | | | Procedures | [id number] | Phone: | | | | | [place] [facility] | Phone: | [phone] | | | | | STUDY, | [phone] | Fax: | | | | | UNATTENDED, | Fax: | [phone] | | | | | SIMUL RECORD | [phone] | | | | | | HR/O2 | | | | | | | SAT/RESP | | | | | | | FLOW/RESP | | | | | | | EFF HST | | | +--------+ + + + + + Encounter Details +--------+ + + + + | Date | Type | Department | Care Team | Description | +--------+ + + + + | 02/18/ | Hospital | [facility] | Paulette Peña MD | ROGELIO (obstructive | | 2018 - | Encounter | [facility] | [address] | sleep apnea) | | | | CENTER [address] | [place] | | | 02/19/ | | [place] | [id number] | | | 2018 | | [address] | | | | | | [phone] | | | +--------+ + + + [...] + + documented as of this encounter Medications at Time of Discharge + + + +---------+--------+ + | Medication | Sig | Dispensed | Refills | Start | End Date | | | | | | Date | | + + + +---------+--------+ + | ALPRAZolam (XANAX) | Take 0.5 mg by mouth | | 0 | | | | 0.5 mg tablet | 3 times daily as | | | | | | | needed for Anxiety. | | | | | + + + +---------+--------+ + | amLODIPine | Take 10 mg by mouth | | 0 | | | | (NORVASC) 10 MG | Daily. | | | | | | tablet | | | | | | + + + +---------+--------+ + | busPIRone (BUSPAR) | Take 30 mg by mouth | | 0 | | | | 10 MG tablet | 3 times daily. | | | | | + + + +---------+--------+ + | ergocalciferol | Take 50,000 Units by | | 0 | | | | (VITAMIN D-2) 50,000 | mouth Once a week. | | | | | | units capsule | | | | | | + + + +---------+--------+ + | Loratadine 10 MG | Take by mouth. | | 0 | | | | CAPS | | | | | | + + + +---------+--------+ + | meloxicam (MOBIC) | Take 15 mg by mouth | | 0 | | | | 15 mg tablet | Daily. | | | | | + + + +---------+--------+ + | lisinopril | Take 12.2 mg by | | 0 | | | | (PRINIVILMEDARDOSTRIL) | mouth Daily. | | | | 8 | | 10 mg tablet | | | | | | + + + +---------+--------+ + documented as of this encounter Procedure Notes Paulette Peña MD - 02/24/2018 8:30 AM PDTAssociated Order(s): SLEEP STUDY HOME SLEEP TEST Pre-Procedure Diagnose(s): ROGELIO (obstructive sleep apnea)Post-Procedure Diagnose(s): ROGELIO (obs tructive sleep apnea) [facility] [place] [address] Unattended, Multiparameter, Sleep Apnea Test for Alejandro Bolton performed on February 19, 2018. Identifying Information: Alejandro Bolton is a 52 y.o. male who is referred for unattended, mu lti-parameter, sleep apnea test because of probable Obstructive Sleep Apnea. He has a histor y of hypertension, GERD, anxiety, and obesity presenting with snoring, witnessed sleep apne a, and fatigue for evaluation of obstructive sleep apnea. BMI: 34 Technical Information: The study was performed on February 19, 2018 using the [employer] [place] d equipment with [employer] Version 9 Software. The study was hand [...] signal excursion by 90% or greater of pre-event baselin e using an oronasal thermal sensor, or an alternative apnea sensor and the duration of the 9 0% or greater drop in sensor signal is greater than or equal to 10 seconds. Obstructive Apnea: Event associated with continued or increased inspiratory effort throug hout the entire period of absent airflow. Central Apnea: Event associated with absent inspiratory effort throughout the entire nestor od of absent airflow. Because EEG is not monitored, Central Apneas cannot be scored with any degree of reliability on this type of sleep study. Mixed Apnea: Event associated with absent inspiratory effort in the initial portion of th e event followed by resumption of inspiratory effort during the second portion of the event. Because EEG is not monitored, mixed apneas are not reliably scored on this type of study. Hypopnea: The peak signal excursions drop by 30% or more of pre-event baseline using nasal pressure (diagnostic study), PAP device flow (titration study), or an alternative hypopnea sensor (diagnostic study). The duration of the 30% or greater drop in signal excursion must last for 10 seconds or longer. The event is associated with a 3% or greater oxygen desaturat ion from pre-event baseline or the event is associated with an arousal. Respiratory Event Related Arousal: Because EEG is not recorded, Respiratory Event Related Arousal's cannot be enumerated. The Respiratory [...] 38.. Mean oxygen oxygen saturation was 91%, lilian saturation was 69%, and patient spent 25.5% of time( 125.3 minutes) below 90%. 3 %Oxygen desaturation index was 59.5and was severely eleva jie. Average heart rate was 91 BPM. Interpretation: This home sleep apnea testing (HSAT) showed sleep apnea which was obstructi ve in nature, and it was severe in frequency of events, and severe in frequency of desatura tions. Lilian saturation was 69%, and patient spent 125.3 minutes of time below 90%. The flex dy was technically an adequate study. Recommendations: 1. A trial of auto-CPAP at 5-20 cm H2O. 2. Weight management. Paulette Peña MD Portions of this chart may have been created with [employer] voice recognition software. Occasi onal wrong-word or sound-alike substitutions may have occurred due to the inherent gavin itations of voice recognition software. Please read the chart carefully and recognize, using context, where these substitutions have occurred. documented in this encounter Plan of Treatment Not on filedocumented as of this encounter Procedures + +--------+ + + + | Procedure Name | Priori | Date/Time | Associated Diagnosis | Comments | | | ty | | | | + +--------+ + + + | SLEEP STUDY HOME | Routin | 02/24/2018 | | Results for this | | SLEEP TEST | e | 8:30 AM | | procedure are in the | | | | PDT | | results section. | + +--------+ + + + documented in this encounter Results Sleep study home sleep test (02/24/2018 8:30 AM PDT) + + + | Narrative | Performed At | + + + | Paulette Peña, | | | 03/11/2018 16:57 [facility] | | | [place] [address] Unattended, | | | Multiparameter, Sleep Apnea Test for Alejandro Bolton performed on January | | | 2017. Identifying Information: Alejandro Bolton is a 52 y.o. male who | | | is referred for unattended, multi-parameter, sleep apnea test because | | | of probable Obstructive Sleep Apnea. He has a history of | | | hypertension, GERD, anxiety, and obesity presenting with snoring, | | | witnessed sleep apnea, and fatigue for evaluation of obstructive sleep | | | apnea.BMI: 34 Technical Information: The study was performed on | | | February 19, 2018 using the [employer] equipment with [employer] | | | Version 9 Software. The study was hand scored and hand analyzed. The | | | following physiologic parameters were monitored: snoring, body | | | position, oxygen saturation, heart rate, nasal airflow (PTAF), oral | | | airflow (thermister) and thoracic and abdominal effort (RIP belts). | | | EEG was not monitored and thus sleep staging was not performed. A | | | sleep efficiency of 100% was assumed for the purposes of calculating | | | indices; this assumption can result in a significant underestimation | | | of disease severity. Because EEG was not monitored, Respiratory Effort | | | Related Arousals could not be enumerated; this can also result in | | | underestimation of disease severity. The sensitivity for Obstructive | | | Sleep Apnea of this type of study is high but the specificity is low. | | | Definitions (The AASM Manual for the Scoring of Sleep and Associated | | | Events, Version 2.3; 2016): Apnea: There is a drop in the peak signal | | | excursion by 90% or greater of pre-event baseline using an oronasal | | | thermal sensor, or an alternative apnea sensor and the duration of the | | | 90% or greater drop in sensor signal is greater than or equal to 10 | | | seconds. Obstructive Apnea: Event associated with continued or | | | increased inspiratory effort throughout the entire period of absent | | | airflow. Central Apnea: Event associated with absent inspiratory | | | effort throughout the entire period of absent airflow. Because EEG is | | | not monitored, Central Apneas cannot be scored with any degree of | | | reliability on this type of sleep study. Mixed Apnea: Event | | | associated with absent inspiratory effort in the initial portion of | | | the event followed by resumption of inspiratory effort during the | | | second portion of the event. Because EEG is not monitored, mixed | | | apneas are not reliably scored on this type of study. Hypopnea: The | | | peak signal excursions drop by 30% or more of pre-event baseline using | | | nasal pressure (diagnostic study), PAP device flow (titration study), | | | or an alternative hypopnea sensor (diagnostic study). The duration of | | | the 30% or greater drop in signal excursion must last for 10 seconds | | | or longer. The event is associated with a 3% or greater oxygen | | | desaturation from pre-event baseline or the event is associated with | | | an arousal. Respiratory Event Related Arousal: Because EEG is not | | | recorded, Respiratory Event Related Arousal's cannot be enumerated. | | | The Respiratory Event Index (WING) is the term used to represent the | | | frequency of apneas and hypopneas derived from Home Sleep Apnea | | | Testing(HSAT). It is a surrogate for AHI. Results: Data collection | | | commenced at 02:52 on 2017 and data collection terminated at | | | 11:14 on February 19, 2018. During the 501.5 minutes of index study time | | | there were 144 obstructive apneas, 2 central apneas, 1 mixed apneas | | | and 341 hypopneas. The WING was 58.4 which is severely elevated. | | | Relative time in supine position was 57.8%. The events were | | | worsened in the supine position with WING of 73.2. However, | | | non-supine WING was also severe at 38..Mean oxygen oxygen saturation | | | was 91%, lilian saturation was 69%, and patient spent 25.5% of time( | | | 125.3 minutes) below 90%. 3 %Oxygen desaturation index was 59.5and was | | | severely elevated. Average heart rate was 91 BPM. | | | Interpretation: This home sleep apnea testing (HSAT) showed sleep | | | apnea which was obstructive in nature, and it was severe in | | | frequency of events, and severe in frequency of desaturations. Lilian | | | saturation was 69%, and patient spent 125.3 minutes of time below | | | 90%. The study was technically an adequate study. Recommendations: | | | 1. A trial of auto-CPAP at 5-20 cm H2O. 2. Weight management. | | | Paulette Peña MD Portions of this chart may have been created with | | | [employer] voice recognition software. Occasional wrong-word or | | | | | | sound-alike | | | substitutions may have occurred due to the inherent limitations of | | | voice recognition software. Please read the chart carefully and | | | recognize, using context, where these substitutions have occurred. | | |501.5 minutes of index study time there were 144 obstructive | | |apneas, 2 central apneas, 1 mixed apneas and 341 hypopneas. The | | |WING was 58.4 which is severely elevated. Relative time in supine | | |position was 57.8%. The events were worsened in the supine | | |position with WING of 73.2. However, non-supine WNIG was also | | |severe at 38.. | | |Mean oxygen oxygen saturation was 91%, lilian saturation was 69%, | | |and patient spent 25.5% of time( 125.3 minutes) below 90%. 3 | | |%Oxygen desaturation index was 59.5and was severely elevated. | | |Average heart rate was 91 BPM. | | | | | |Interpretation: This home sleep apnea testing (HSAT) showed sleep | | |apnea which was obstructive in nature, and it was severe in | | |frequency of events, and severe in frequency of desaturations. | | |Lilian saturation was 69%, and patient spent 125.3 minutes of time | | |below 90%. The study was technically an adequate study. | | | | | | | | |Recommendations: | | |1. A trial of auto-CPAP at 5-20 cm H2O. | | |2. Weight management. | | | | | | | | | | | |Paulette Peña MD | | | | | |Portions of this chart may have been created with [employer] voice | | |recognition software. Occasional wrong-word or sound-alike | | |substitutions may have occurred due to the inherent limitations | | |of voice recognition software. Please read the chart carefully | | |and recognize, using context, where these substitutions have | | |occurred. | | + + + documented in this encounter Visit Diagnoses + + | Diagnosis | + + | ROGELIO (obstructive sleep apnea) Obstructive sleep apnea (adult) (pediatric) | + + documented in this encounter"
--- OUTSIDE RECORDS SUMMARY | ~2020-05-23 | XMS | Clinical Summary ---
Demographics + + + | Address | [address] | | | [place] [address] | + + + | Home Phone | | + + + | Preferred Language | Unknown | + + + | Marital Status | | + + + | Gnosticism Affiliation | Unknown | + + + | Race | Unknown | + + + | Ethnic Group | Unknown | + + + Author + + + | Author | [facility] | | | and [place] | + + + | Organization | [facility] | | [...] Team Providers + +------+ + | Care Malt House Loader Name | Role | Phone | + +------+ + | Allyson Haro | PCP | | + +------+ + Allergies No Known Allergies Medications + + + +---------+------+------+-------+ | Medication | Sig | Dispensed | Refills | Star | End | Statu | | | | | | t | Date | s | | | | | | Date | | | + + + +---------+------+------+-------+ | ALPRAZolam (XANAX) | Take 0.5 mg by mouth | | 0 | | | Activ | | 0.5 mg tablet | 3 times daily as | | | | | e | | | needed for Anxiety. | | | | | | + + + +---------+------+------+-------+ | busPIRone (BUSPAR) | Take 30 mg by mouth | | 0 | | | Activ | | 10 MG tablet | 3 times daily. | | | | | e | + + + +---------+------+------+-------+ | ergocalciferol | Take 50,000 Units by | | 0 | | | Activ | | (VITAMIN D-2) 50,000 | mouth Once a week. | | | | | e | | units capsule | | | | | | | + + + +---------+------+------+-------+ | meloxicam (MOBIC) | Take 15 mg by mouth | | 0 | | | Activ | | 15 mg tablet | Daily. | | | | | e | + + + +---------+------+------+-------+ | amLODIPine | Take 10 mg by mouth | | 0 | | | Activ | | (NORVASC) 10 MG | Daily. | | | | | e | | tablet | | | | | | | + + + +---------+------+------+-------+ | Loratadine 10 MG | Take by mouth. | | 0 | | | Activ | | CAPS | | | | | | e | + + + +---------+------+------+-------+ | varenicline | Chantix Continuing | | 0 | | | Activ | | (CHANTIX) 1 MG | Month Box 1 mg | | | | | e | | tablet | tablet | | | | | | + + + +---------+------+------+-------+ | AFLURIA | ADM 0.5ML IM UTD | | 0 | 09/0 | | Activ | | QUADRIVALENT 0.5 ML | | | | 5/20 | | e | | vaccine injection | | | | 18 | | | | (syringe) | | | | | | | + + + +---------+------+------+-------+ | | TK 1 T PO QAM FOR | | 1 | 09/ | | Activ | | lisinopril-hydrochlo | BP WITH EDEMA | | | 8/20 | | e | | rothiazide | | | | 18 | | | | (PRINZIDE,ZESTORETIC | | | | | | | | ) 20-25 MG per | | | | | | | | tablet | | | | | | | + + + +---------+------+------+-------+ | UNABLE TO FIND | 5-20 cm by Other | | 0 | | | Activ | | | route nightly. Med | | | | | e | | | Name: APAP via | | | | | | | | ResMed AirSense 10 | | | | | | | | AutoSet with heated | | | | | | | | humidification | | | | | | + + + +---------+------+------+-------+ Active Problems + + + | Problem | Noted Date | + + + | Obstructive sleep apnea treated with continuous positive airway | 12/24/2019 | | pressure (CPAP) | | + + + | Arthritis of hand | 04/01/2018 | + + + | Cramps of lower extremity | 04/01/2018 | + + + | Hypertensive disorder | 04/01/2018 | + + + | Male hypogonadism | 04/01/2018 | + + + | Pain in wrist | 04/01/2018 | + + + | Spasm of back muscles | 04/01/2018 | + + + | Suprapubic pain | 04/01/2018 | + + + | Pain in thumb joint with movement | 04/01/2018 | + + + | Tinea cruris | 04/01/2018 | + + + | Upper respiratory infection | 04/01/2018 | + + + | Anxiety | 03/26/2011 | + + + | Family history of allergic disorder | 03/26/2011 | + + + | Family history of arthritis | 03/26/2011 | + + + | Family history of cancer | 03/26/2011 | + + + | Family history of stroke | 03/26/2011 | + + + | Family history of malignant neoplasm of trachea, bronchus, and | 03/26/2011 | | lung | | + + + | Fatigue | 03/26/2011 | + + + | Gastroesophageal reflux disease | 03/26/2011 | + + + | Genital herpes simplex | 03/26/2011 | + + + | Impotence | 03/26/2011 | + + + | Insomnia | 03/26/2011 | + + + | Tobacco user | 03/26/2011 | + + + Social History + + [...] + + + Last Filed Vital Signs + + + [...] | | + + + + + Plan of Treatment + + + + + | Health Maintenance | Due Date | Last | Comments | | | | Done | | + + + + + | Hepatitis C | | | | | Screening | 7 | | | + + + + + | Med Mgmt: BUN | | | | | | 7 | | | + + + + + | Med Mgmt: Cr | | | | | | 7 | | | + + + + + | Med Mgmt: K | | | | | | 7 | | | + + + + + | Med Mgmt: Na | | | | | | 7 | | | + + + + + | Med Mgmt: Vit D | 08/20/196 | | | | | 7 | | | + + + + + | Medication | | | | | Management | 7 | | | + + + + + | Vaccine: | | | | | Dtap/Tdap/Td (1 - | 6 | | | | Tdap) | | | | + + + + + | Colorectal Cancer | | | | | Screening | 7 | | | | (Colonoscopy) | | | | + + + + + | Vaccine: Zoster (1 | | | | | of 2) | 7 | | | + + + + + | Vaccine: Influenza | | 04/30/20 | | | (#1) | 0 | 18, | | | | | 06/05/20 | | | | | 17 | | + + + + + Results Not on filefrom Last 3 Months Insurance + +--------+ +--------+ +---------+------+ | Payer | Benefi | Subscriber | Effect | Phone | Address | Type | | | t Plan | ID | jayden | | | | | | / | | Dates | | | | | | Group | | | | | | + +--------+ +--------+ +---------+------+ | [facility] | PHP | [id number] | 08/26/19 | [phone] | | PPO | | PLAN | PEBB | | 17-Pre | 5 | | | | | PROV | | sent | | | | | | CHOICE | | | | | | + +--------+ +--------+ +---------+------+ + +--------+ +--------+ + + | Guarantor Name | Accoun | Relation to | Date | Phone | Billing Address | | | t Type | Patient | of | | | | | | | | | | + +--------+ +--------+ + + | Alejandro Bolton | Person | Self | [birth year] | [address] | | | al/Fam | | 1965 | [phone] | [place] [address] | | | angelique | | | 4 (Home) | | + +--------+ +--------+ + + Advance Directives + + + + + | Type | Date Recorded | Patient | Explanation | | | | Woven Label Designer | | + + + + + | Power of | | | | | Cargo Handler | | | | + + + + + | Advance | | | | | Directive | | | | + + + + +"
--- OUTSIDE RECORDS SUMMARY | ~2020-05-23 | XMS | Encounter Summary ---
Demographics + + + | Address | [address] | | | [place] [address] | + + + | Home Phone | | + + + | Preferred Language | Unknown | + + + | Marital Status | | + + + | Yazdanism Affiliation | Unknown | + + + [...] Team Providers + +------+ + | Care Teacher Education Instructor Name | Role | Phone | + +------+ + PCP | Unavailable | + +------+ + Encounter Details +--------+ + + + + | Date | Type | Department | Care Team | Description | +--------+ + + + + | 08/05/ | Procedure - | | Record, Operation | Operative Report | | 2003 | | | | | | | Transcribed | | | | +--------+ + + [...] + + documented as of this encounter Procedure Notes Interface, Offset Printer In - 01/21/2006 3:05 AM PDTDate: Attending Surgeon: Tre Saavedra M.D. Still Cleaner Tube(s): Haleigh Mcnulty M.D. 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 Procedures Performed: Fistulotomy. Anesthesia: Local MAC. Complications: None. Specimens: None. Disposition: The patient is stable to Recovery. Indications: Mr. Bolton is a gentleman who had a fistulotomy in August 2002 followed by a persistent anal fissure requiring lateral internal sphincterotomy. The patient has a persistent sinus tract with a small amount of draining pus. He is now referred for evaluation. Operative Findings: The patient had a chronically granulated posterior midline anal ulcer, it starts at the dentate line and runs approximately 1 cm distally. The patient does not have significant internal sphincter spasm. An internal opening was noted at the dentate line at the base of the ulcer that tracked into intersphincteric groove and then distally up towards the anal verge. This also appeared to track in a horseshoe fashion bilaterally. Procedure: I performed a posterior midline intersphincteric fistulotomy and curetted the tract out. The wound was left open to heal by secondary intention. Sponge and instrument counts were correct x 2. The patient tolerated the procedure well and was transferred to Short-Stay in stable condition. Tre Saavedra M.D. / TIAN [id number] / [id number] / [id number] / [id number] cc: Zeeshan Tarango M.D. [facility] [place], [facility] signed by Interface, Offset Printer In at 01/21/2006 3:05 AM PD Tdocumented in this encounter Plan of Treatment Not on filedocumented as of this encounter Procedures + +--------+ + + + | Procedure Name | Priori | Date/Time | Associated Diagnosis | Comments | | | ty | | | | + +--------+ + + + | OPERATION RECORD | | 08/05/2003 | | Results for this | | | | | | procedure are in the | | | | | | results section. | + +--------+ + + + documented in this encounter Results OPERATION RECORD (08/05/2003) + + | Transcriptions | + + | Interface, Offset Printer In - 01/21/2006 3:05 AM PDT Date: | | 08/05/2003Attending Surgeon: Tre Saavedra M.D.Still Cleaner Tube(s): | | Haleigh Mcnulty M.D.Preoperative Diagnosis(es):Chronic posterior anal | | fissure versus fistula.Postoperative Diagnosis(es):Posterior midline anal fissure | | secondary to chronic intersphinctericinfected sinus.Procedures | | Performed:Fistulotomy.Anesthesia:Local | | MAC.Complications:None.Specimens:None.Disposition:The patient is stable to | | Recovery.Indications:Mr. Bolton is a gentleman who had a fistulotomy in August 2002 | | followed bya persistent anal fissure requiring lateral internal sphincterotomy. | | Thepatient has a persistent sinus tract with a small amount of draining pus.He is now | | referred for evaluation.Operative Findings:The patient had a chronically granulated | | posterior midline anal ulcer, itstarts at the dentate line and runs approximately 1 cm | | distally. Thepatient does not have significant internal sphincter spasm. An | | internalopening was noted at the dentate line at the base of the ulcer that trackedinto | | intersphincteric groove and then distally up towards the anal verge.This also appeared | | to track in a horseshoe fashion bilaterally.Procedure:I performed a posterior midline | | intersphincteric fistulotomy and curettedthe tract out. The wound was left open to heal | | by secondary intention.Sponge and instrument counts were correct x 2. The patient | | tolerated theprocedure well and was transferred to Short-Stay in stable condition.Tre | | Gypsy Saavedra.BRAD / [id number] / [id number] / [id number] / [id number]: 08/05/2003T: | | 08/05/2003cc:Zeeshan Tarango M.D.[address] [place] [address], [place] | |Complications: | |None. | | | |Specimens: | |None. | | | |Disposition: | |The patient is stable to Recovery. | | | |Indications: | |Mr. Bolton is a gentleman who had a fistulotomy in August 2002 followed by | |a persistent anal fissure requiring lateral internal sphincterotomy. The | |patient has a persistent sinus tract with a small amount of draining pus. | |He is now referred for evaluation. | | | |Operative Findings: | |The patient had a chronically granulated posterior midline anal ulcer, it | |starts at the dentate line and runs approximately 1 cm distally. The | |patient does not have significant internal sphincter spasm. An internal | |opening was noted at the dentate line at the base of the ulcer that tracked | |into intersphincteric groove and then distally up towards the anal verge. | |This also appeared to track in a horseshoe fashion bilaterally. | | | |Procedure: | |I performed a posterior midline intersphincteric fistulotomy and curetted | |the tract out. The wound was left open to heal by secondary intention. | |Sponge and instrument counts were correct x 2. The patient tolerated the | |procedure well and was transferred to Short-Stay in stable condition. | | | | | | | | | |Tre Saavedra M.D. | | | |MW / HS | |[id number] / [id number] / [id number] / [id number] | | | | | | | |cc: | | | |Zeeshan Tarango M.D. | |[address] [place] | |[place], [place] | + + documented in this encounter Visit Diagnoses Not on filedocumented in this encounter"
[~2020-05-23 09:15] MED LIST: ALPRAZOLAM0.5 MG PO; AMLODIPINE BESY10 MG PO; AMLODIPINE-ATO1 EAC4 PO; BUSPIRONE HCL30 MG PO; CIPROFLOXACIN500 MG PO; HYDROCODON-ACE1 EA11 PO; LISINOPRIL-HCT1 EACH PO; LISINOPRIL20 MG PO; MELOXICAM15 MG PO; METRONIDAZOLE500 MG PO; VALACYCLOVIR1000 MG PO
[2020-05-25] MEDS ORDERED: PRILOSEC OTC20 MG PO (07:12)
--- NOTE | 2020-05-25 11:36 | NUR ---
05/25/20 1136 Sheets,Alyssa 1127 PT ARRIVED TO PACU ON 6L VIA MASK, WITH ORAL AIRWAY IN PLACE. RESP EVEN AND UNLABORED. VSS WITH A SMALL AMOUNT OF SNORING. PT NONAROUSABLE.
--- NOTE | 2020-05-25 12:15 | NUR ---
Patient arrives from surgery with surgery staff. Currently awake, alert and oriented rating pain 5/10 at this time. Dressing clean, dry and intact. Assessment completed. Vital signs obtained.
--- NOTE | 2020-05-25 13:18 | NUR ---
Rating pain 8/10. Scheduled Tylenol given as prescribed. Ice pack also provided and placed over abdomen. Vitals obtained, WNL. Denies other needs. Sips of water and ice chips also provided.
--- NOTE | 2020-05-25 13:31 | NUR ---
PATIENT RESTING IN BED. VITAL SIGNS DONE BY RN. I&O DONE. CALL LIGHT WITHIN REACH. NO OTHER NEEDS AT THIS TIME
--- NOTE | 2020-05-25 14:25 | NUR ---
PATIENT 1400 POST OP VITALS DONE, STABLE. PATIENT ABD PAIN IS 6-7/10 AND IV TORADOL GIVEN.
--- NOTE | 2020-05-25 15:03 | NUR ---
CALL LIGHT ANSWERED. PATIENT ASKS FOR PAIN MEDICATION. RN NOTIFIED. NO OTHER NEEDS AT THIS TIME
--- NOTE | 2020-05-25 15:06 | NUR ---
Attempt to notify Dr. Manjarrez of patient pain uncontrolled with ordered medications. No answer, will attempt to call again.
--- NOTE | 2020-05-25 15:32 | NUR ---
Called Dr. Manjarrez clinic to inform Dr. Manjarrez of patient medications for pain being ineffective. Staff state they will pass message along to Dr. Manjarrez.
--- NOTE | 2020-05-25 15:39 | NUR ---
Spoke with Dr. Manjarrez regarding patient poor pain control. Telephone orders read back Dr. Manjarrez/Hugh Betancur RN, for Dilaudid 0.5mg to 1.0 mg IV push every 30 minutes as needed for pain, notify Dr. Manjarrez if taking Dilaudid frequently.
--- NOTE | 2020-05-25 15:49 | NUR ---
PRN medication given as prescribed. Educated on Dilaudid and possible side effects. Verbalizes understanding.
--- NOTE | 2020-05-25 16:43 | NUR ---
States pain has not improved since administration ofprevious analgesic. PRN medication given.
--- NOTE | 2020-05-25 17:21 | NUR ---
PATIENT RESTING IN BED. VITAL SIGNS AND I&O DONE. ICE PACK GIVEN. CALL LIGHT WITHIN REACH. NO OTHER NEEDS AT THIS TIME
--- NOTE | 2020-05-25 18:24 | NUR ---
Admitted for post op sigmoid colectomy today. Difficulty controlling pain with Toradol and Tylenol. Dilaudid given X2, pain currently 3 or 4/10 at this time. Tolerating liquids. Mcgraw catheter in place. IV fluids infusing. Adequate urine output. Ambulates in hallway this afternoon. TOlerates well with 1 short rest period.
--- NOTE | 2020-05-25 19:18 | NUR ---
RECEIVED REPORT FROM NAVI WORKMAN. pt RESTING IN BED. REPORTED 03/04 PAIN. DISCUSSED PAIN MANAGEMENT. NO FURTHER REQUESTS AT THIS TIME. CALL LIGHT WITHIN REACH.
--- NOTE | 2020-05-25 19:47 | NUR ---
PRN PAIN MEDICATION GIVEN (SEE MAR) FOR 8 PAIN. pt REPORTED A "LITTLE" NAUSEA BUT REFUSED MEDICATION AT THIS TIME. pt WILL CALL IF PAIN MEDICATION DOES NOT HELP. CALL LIGHT WITHIN REACH. DAUGHTER AT BEDSIDE. VISUALLIZED WOUNDS, CDI. SMALL AMOUNT OF SANGUINEOUS DRAINAGE IN MARY DRAIN.
--- NOTE | 2020-05-25 19:57 | NUR ---
REFILLED ICE WATER. NO FURTHER NEEDS AT THIS MOMENT.
--- NOTE | 2020-05-25 21:45 | NUR ---
pt SITTING UP IN BED WATCHING TV. VSS. URINAL EMPTIED, CARYN DRAIN EMPTIED. pt RESTING IN BED, IVF INFUSING. NO REQUESTS AT THIS TIME. CALL LIGHT IN REACH.
--- NOTE | 2020-05-25 21:46 | NUR ---
V/S AND I&O TAKEN AND CHARTED BY NVAI REAVES.
--- NOTE | 2020-05-25 23:48 | NUR ---
ROUNDED ON pt. RATED PAIN 4-5/10. HAS NOT INCREASED. PROVIDED A FRESH ICE PACK. NO FURTHER REQUESTS AT THIS TIME. CALL LIGHT WITHIN REACH.
--- NOTE | 2020-05-26 02:05 | NUR ---
IN TO ASSESS pt. VITALS AND I&O DONE. BOWEL TONES ACTIVE. pt COMPLAINED OF 7/10 PAIN. "IT MAINLY FEELS LIKE GAS." DISCUSSED PAIN MANAGEMENT AND IMPORTANCE OF CALLING WHEN HE IS IN PAIN.
--- NOTE | 2020-05-26 02:13 | NUR ---
V/S AND I&ON TAKEN AND RECORDED BY PRIMARY RN CORBY. ICE WATER REFILLED. NEW ICE PACK MADE. WHITE BOARD UPDATED.
--- NOTE | 2020-05-26 02:22 | NUR ---
CALLED MD. NOTIFIED ABOUT PAIN. NEW ORDERS ENTERED. OKAY TO GIVE MORE DILAUDID.
--- NOTE | 2020-05-26 02:41 | NUR ---
PRN MEDICATIONS GIVEN (SEE MAR). pt VERBALIZED UNDERSTANDING TO CALL IF PAIN DOES NOT IMPROVE. CALL LIGHT WITHIN REACH.
--- NOTE | 2020-05-26 03:15 | NUR ---
CALL LIGHT ON. pt REQUESTED PRN PAIN MEDICATION FOR 9/10 PAIN GIVEN (SEE MAR). pt REPORTED HICCUPS, WRITHING IN PAIN. ENCOURAGED FOCUSED BREATHING. HICCUPS CLEARED AFTER A FEW MINUTES OF BREATHING. pt REPORTED GENERALIZED ABD PAIN POST HICCUPS. pt WILL CALL IF PAIN DOES NOT IMPROVE.
--- NOTE | 2020-05-26 04:11 | NUR ---
ROUNDED ON pt. SNORING. CALL LIGHT WITHIN REACH.
--- NOTE | 2020-05-26 07:15 | NUR ---
Pt resting in semifowlers position in bed alert and oriented, pt reports pain to abd so prn opiod administered per noc shift RN. Call light and h2o in reach. Pt denies further needs or concerns.
[2020-05-26] MEDS ORDERED: AMLODIPINE-ATO1 EAC4 PO (09:41)
--- NOTE | 2020-05-26 10:39 | NUR ---
PT REPORTS INCREASED 9/10 PAIN TO ABDOMEN STATES "THESE HICCUPS JUST AGGREVATE IT EVEN MORE, IT'S REALLY PAINFUL NOW". lIGHTS DIMMED, PT DISTRACTION AND REPOSITIONED SELF IN BED. PRN OPIOD ADMINISTERED PER PT REQUEST. CALL LIGHT AND H2O IN REACH. PT DENIES FURTHER NEEDS OR CONCERNS.
[2020-05-26] MEDS ORDERED: SULFAMETHOXAZO1 EAC1 PO (12:15)
[2020-05-26] MEDS ORDERED: ACETAMINOPHEN500 MG PO (12:16)
[2020-05-26] MEDS ORDERED: OXYCODONE HCL10 MG PO (12:29)
--- NOTE | 2020-05-26 12:30 | NUR ---
MED REC COMPLETE
--- NOTE | 2020-05-26 14:08 | NUR ---
PT RESTING IN SEMIFOWLERS POSITION IN BED. PT STATES "THESE HICCUPS SEEM TO NOT BE GOING AWAY AND THEY AGGREVATE MY PAIN. IF THERES SOMETHING I COULD GET TO HELP WITH THE HICCUPS SO WE CAN GET THIS PAIN BETTER UNDER CONTROL I WOULD APPRECIATE THAT". MESSAGE LEFT WITH WHEEL ASSEMBLERNAVI ROTHMAN WHO AGREES TO NOTIFY DR MUÑIZ ONCE HE IS AVAILABLE. PT ALERT AND ORIENTED. ASSESSMENT COMPLETED. PRN ADMINISTERED PER PT REQUEST. CALL LIGHT AND H2O IN REACH. NO FURTHER NEEDS OR CONCERNS VOICED.
--- NOTE | 2020-05-26 14:50 | NUR ---
Spoke with Danyel and his son, Adolph. Pt plans on dc to home. He lives in a 1 story house with 2 steps. Does not use DME. 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 Denies concerns to go home. I spoke with Dr. Wills and pt will stay a few days.
--- NOTE | 2020-05-26 17:05 | NUR ---
PT RESTING IN SEMIFOWLERS POSITION IN BED ALERT AND ORIENTED PT REPORTS PERSISTING HICCUPS CAUSING HIGH LEVELS OF ABD PAIN. PRN OPIOD ADMINSITERED FOR ABD PAIN PER PT REQUEST IN ADDITION TO PRN IV REGLAN PER PT REQUEST. CALL LIGHT AND H2O IN REACH. WILL CTM. PT DENIES FURTHER NEEDS OR CONCERNS. PT STATES HE PASSED SOME LOOSE STOOL AND LOTS OF GAS RECENTLY.
--- NOTE | 2020-05-26 18:45 | NUR ---
PT ALERT AND ORIENTED RESTING IN SEMIFOWLERS POSITION IN BED PT DENIES PAIN OR SOB. PT STATES HICCUPS HAVE SUBSIDED WITH ADMINISTRATION OF REGLAN DENIES FURTHER NEEDS OR CONCERNS. RR EVEN AND UNLABORED AT 16 O2 SAT 99%.
--- NOTE | 2020-05-26 19:12 | NUR ---
RECEIVED REPORT FROM NAVI CRISTINA. pt RESTING IN BED. WHITEBOARD UPDATED. CALL LIGHT WITHIN REACH.
--- NOTE | 2020-05-26 20:53 | NUR ---
CALL LIGHT ON. pt UP FROM TOILET TO BED. REPORTED PAIN PRN GIVEN (SEE MAR) WITH SCHEDULED MEDICATIONS. DISCUSSED PAIN MANAGEMENT AND PLAN FOR SHIFT. ASSESSMENT DONE. MARY DRAIN HAS SS DRAINAGE. ICE PACK PROVIDED. SCDS ON. CALL LIGHT WITHIN REACH.
--- NOTE | 2020-05-26 23:23 | NUR ---
CALL LIGHT ON. pt REPORTED HICCUPS AND ASKED TO GET UP TO TOILET. SBA TO TOILET. WILL CALL WHEN DONE. CALL LIGHT WITHIN REACH.
--- NOTE | 2020-05-27 00:34 | NUR ---
ROUNDED ON pt. RATED PAIN 6/10, PRN PAIN MEDICATION GIVEN (SEE MAR). PROVIDED WITH WARM BLANKET. NO FURTHER REQUESTS AT THIS TIME. CALL LIGHT WITHIN REACH.
--- NOTE | 2020-05-27 01:30 | NUR ---
ROUNDED ON pt. SNORING. CALL LIGHT WITHIN REACH.
--- NOTE | 2020-05-27 03:34 | NUR ---
ROUNDED ON pt. pt REPORTED "I ACTUALLY FEEL THE BEST I'VE FELT." REFUSED PAIN MEDICATION AT THIS TIME. ASSESSMENT DONE. NEW BAG OF IVF INFUSING. NO FURTHER REQUESTS CALL LIGHT WITHIN REACH.
--- NOTE | 2020-05-27 05:01 | NUR ---
PT CALLED TO GET UP TO THE TOILET, SBA PT UP TO THE TOILET, WILL GET VITALS AND I&Os WHEN PT IS DONE
--- NOTE | 2020-05-27 05:59 | NUR ---
IN ROOM TO ADMINISTER MORNING MEDS. PT ALSO STATES HE HAS 6/10 PAIN. ADMINISTERED TORADOL AND DILAUDID. HE HAD SOME NAUSEA WELL, ADMINISTERED REGLAN. HE DENIES FURTHER NEEDS. CALL LIGHT IS CLOSE.
--- NOTE | 2020-05-27 09:18 | NUR ---
PT RESTING IN SEMIFOWLERS POSITION IN BED, ALERT AND ORIENTED. PT STATES PAIN IS TOLERABLE AND HICCUPS HAVE BEEN ABSENT. ASSESSMENT COMPLETED. BT'S ACTIVE IN ALL QUADRANTS PT REPORTS PASSING MOUNIKA AND SOME LOOSE STOOL TODAY. CALL LIGHT AND H2O IN REACH. PT DNEIES FURTHER NEEDS OR CONCERNS. FRESH ICE PACK PROVIDED.
--- NOTE | 2020-05-27 11:26 | NUR ---
PATIENT WOKE FOR VITALS AND I&OS. ORR EMPTIED. FRESH ICE WATER GIVEN. PATIENT NOT HUNGRY, ORDERED NO BREAKFAST. CALL LIGHT IN REACH, NO OTHER NEEDS AT THIS TIME
--- NOTE | 2020-05-27 11:55 | NUR ---
PT RESTING SUPINE IN BED ALERT AND ORIENTED PT DENIES WANTING CLEAR LIQUIDS TRAY AND AKNOWLEDGES THAT HE CAN GRADUALLY ADVANCE TO A FULL LIQUID DIET TOLERABLE BUT STATES HE DOESN'T HAVE AN APPETITE RIGHT NOW. CALL LIGHT IN REACH PT STATES PAIN IS TOLERABLE. NO NEEDS OR CONCERNS VOICED.
--- NOTE | 2020-05-27 13:12 | NUR ---
PATIENT AWAKE IN BED. DAUGHTER IN BED. PATIENT ISN'T INTERESTED IN LUNCH AT THIS TIME, WILL CALL WHEN HE IS. CALL LIGHT WITHIN REACH, NO OTHER NEEDS AT THIS TIME
--- NOTE | 2020-05-27 14:20 | NUR ---
PT ALERT AND RESTING SUPIN EIN BED. ASSESSMENT COMLETED. PT STATES PAIN IS TOLERABLE. PT REQEUSTED AND RECEIVED ICE CHIPS WHICH HE IS TOLERATING WELL. PT REPORTS HE HAS BEEN PASSING SOME GAS. P TUP AT THIS TIME TO AMBULATE WITH AMBER PERAZA. NO FURTHER NEEDS OR CONCERNS VOICED.
--- NOTE | 2020-05-27 15:16 | NUR ---
Pt resting in his bed and states he feels that he is having gas pain as well as abd pain, pt medicated as ordered, see emar.
--- NOTE | 2020-05-27 15:50 | NUR ---
Spoke with Danyel. States he is much better today. Pain continues but is not as severe as yesterday. Denies needs. He plan for discharge is unchanged.
--- NOTE | 2020-05-27 17:30 | NUR ---
ASSUMED CARE OF PT. DENIES ANY NEEDS, CALL LIGHT IN EASY REACH, DAUGHTER IN ROOM.
--- NOTE | 2020-05-27 18:53 | NUR ---
AMBULATING IN HALLWAY WITH DAUGHTER, IN GOOD SPIRITS.
--- NOTE | 2020-05-27 18:55 | NUR ---
VITALS AND I&OS CHARTED. DAUGHTER AND PATIENT AMBULATED ONCE AROUND NURSES STATION. ORR AND CARYN EMPTIED. PATIENT REPORTS 2 SMALL GREENISH LOOSE STOOLS EARLIER TODAY. CALL LIGHT IN REACH, FRESH ICE PACK GIVEN, NO OTHER NEEDS AT THIS TIME
--- NOTE | 2020-05-27 19:00 | NUR ---
RECEIVED REPORT FROM NAVI YEBOAH. pt RESTING IN BED. DAUGHTER AT BEDSIDE. NO REQUESTS AT THIS TIME. PAIN "OKAY" WHITEBOARD UPDATED. CALL LIGHT WITHIN REACH.
--- NOTE | 2020-05-27 21:30 | NUR ---
IN TO DO ASSESSMENT. pt REQUESTED TO GET UP TO HAVE BM. WILL CALL WHEN DONE.
--- NOTE | 2020-05-27 22:10 | NUR ---
CALL LIGHT ON. pt BACK TO BED. ASSESSMENT DONE. MEDICATIONS GIVEN (SEE MAR). DISCUSSED PAIN MANAGEMENT. PRN GIVEN WITH SCHEDULED. BOWEL TONES ACTIVE. DENIES NAUSEA. NO HICCUPS AT THIS TIME. VITALS AND I&O RECORDED. FRESH ICE PACK, AND WATER. pt DID NOT WANT TO TRY ANY OTHER CLEAR LIQUIDS AT THIS TIME. CALL LIGHT WITHIN REACH.
--- NOTE | 2020-05-27 23:27 | NUR ---
ROUNDED ON pt. REPORTED 6/10 PAIN AND NAUSEA, PRNS ADMINISTERE (SEE MAR). NO FURTHER REQUESTS AT THIS TIME. CALL LIGHT WITHIN REACH.
--- NOTE | 2020-05-28 01:23 | NUR ---
ROUNDED ON pt. REPORTED "CRAMPING, GAS LIKE PAIN" PRN PAIN MED GIVEN (SEE MAR). pt MADE 1 LAP AROUND UNIT. BACK TO BED. EDUCATED ON PAIN MANAGEMENT AND IMPORTANCE OF NOT WAITING TO CALL FOR PAIN MEDICATION. pt VERBALIZED UNDERSTANDING. CALL LIGHT WITHIN REACH.
--- NOTE | 2020-05-28 03:04 | NUR ---
ROUNDED ON pt. RESTING IN BED REPORTS "I FEEL MUCH BETTER" REFUSED PAIN MEDICATION AT THIS TIME. CALL LIGHT WITHIN REACH.
--- NOTE | 2020-05-28 04:12 | NUR ---
IV PUMP BEEPING. NEW BAG HUNG. pt REPORTED "I WAS ABLE TO SLEEP A LITTLE" REFUSED PAIN MEDICATION AT THIS TIME. ASSESSMENT DONE. CALL LIGHT WITHIN REACH.
--- NOTE | 2020-05-28 06:46 | NUR ---
ROUNDED ON pt. RESTING IN BED. REPORTED PAIN IS 4/10. NO REQUESTS AT THIS TIME. CALL LIGHT WITHIN REACH.
--- NOTE | 2020-05-28 06:48 | NUR ---
pt DID NOT REST MUCH DURING SHIFT. PAIN CONTROLLED WITH SCHEDULED AND PRN X4. pt AMBULATED IN BANKS X1. IS PASSING GAS. MIDLINE INCISION DRESSING CDI. MARY DRAIN MOSTLY SEROUS OUTPUT, SS AT TIMES. SBA. TOLERATING WATER. IVF AND IV ABX. USES CALL LIGHT WITHIN REACH.
--- NOTE | 2020-05-28 07:00 | NUR ---
PT RESTING IN SEMIFOWLERS POSITION IN BED EYES CLOSED AND RESPIRATIONS EVEN AND UNLABORED CALL LIGHT AND H2O IN REACH. REPORT RECEIVED FROM NOC SHIFT RN.
--- NOTE | 2020-05-28 09:06 | NUR ---
PT ALERT AND ORIENTED RESTING IN SEMIFOWLERS POSITION IN BED ALERT TO VOICE, ASSESSMENT COMPLETED AND AM MEDS ADMINISTERED -SEE EMAR. PT STATES PAIN IS TOLERABLE. ENCOURAGED PT TO USE CALL LIGHT WHEN HE FEELS READY TO AMBULATE. PT DENIES APPETITE BUT STATES HE IS PASSING GAS. BTS ACTIVE. CALL LIGHT AND H2O IN REACH.
--- NOTE | 2020-05-28 10:08 | NUR ---
PATIENT AWAKE IN ROOM. VITALS AND I&OS CHARTED, ORR AND CARYN DRAINED. CALL LIGHT IN REACH.
--- NOTE | 2020-05-28 11:35 | NUR ---
PT RESTING IN SEMIFOWELRS POSITION IN BED, PT ALERT AND ORIENTED CALL LIGHT AND H2O IN REACH. PT STATES PAIN IS TOLERABLE AT ABOUT A 3/10 AND DENIES NAUSEA, SOB OR OTHER SYMPTOMS. CLEAR ENSURE PROVIDED PER PT REQUEST PT STATES HE WANTS TO GO SLOW AND DOESNT FEEL READY FOR ANYTHING MORE TO EAT AT THIS TIME. FRESH ICE WATER ALSO PROVIDED. NO FURTHER NEEDS OR CONCERNS VOICED.
--- NOTE | 2020-05-28 13:14 | NUR ---
Pt alert and oriented resting in semifowlers position in bed. Pt alert and oriented call light and h2o in reach. Pt reports increased 6/10 pain to abdomen that comes and goes. Assessment completed, pt repositions self and walking PRN. Per pt request prn toradol and po tylenol was administered. Call light and h2o in reach. Pt denies further needs or concerns.
--- NOTE | 2020-05-28 13:23 | NUR ---
PATIENT IN BED AFTER WALK, DAUGHTER IN ROOM. PATIENT VERY PAINFUL ON LEFT SIDE, RN AWARE. ORR EMPTIED. VITALS AND I&OS CHARTED. NO OTHER NEEDS AT THIS TIME
--- NOTE | 2020-05-28 14:01 | NUR ---
PT NOT HAVING MUCH RELEIF FROM THE TORDAL AND TYLENOL AT THIS TIME, PROVIDED GAS RELEIF MEDICATIONS TO SEE IF THAT WOULD HELP.
--- NOTE | 2020-05-28 16:16 | NUR ---
PT REPORTS INCREASED PAIN TO ABDOMEN UNRELEIVED BY TYLENOL, TORADOL AND SIMETHICONE. PROVIDED PT WITH WARM BLANKETS AND HE REPOSITIONED HIMSELF IN BED. PT REQUESTED AND RECEIVED IV OPIOD. CALL LIGHT AND H2O IN REACH.
--- NOTE | 2020-05-28 17:03 | NUR ---
IN TO SEE FREEDOM PT STATES "MY PAIN FEELS MUCH BETTER, NOW I JUST FEEL EXHAUSTED" IV FLUIDS REPLACED WITH NEW BAG OF D5LR -SEE EMAR. CALL LIGHT AND H2O IN REACH. PT DENIES FURTHER NEEDS OR CONCERNS.
--- NOTE | 2020-05-28 17:53 | NUR ---
VITALS AND I&OS CHARTED. ORR EMPTIED, CARYN EMPTIED. CALL LIGHT IN REACH
--- NOTE | 2020-05-28 18:04 | NUR ---
PATIENT AMBULATING HALLS.
--- NOTE | 2020-05-28 19:13 | NUR ---
RECEIVED REPORT FROM NAVI CRISTINA. pt RESTING IN BED. NO REQUESTS AT THIS TIME. CALL LIGHT WITHIN REACH. REPORTED PAIN IS "OKAY" REFUSED PAIN MEDICATION. WHITEBOARD UPDATED.
--- NOTE | 2020-05-28 21:45 | NUR ---
ROUNDED ON pt. REQUESTED TO GET UP TO TOILET. SBA. WILL CALL WHEN DONE. CALL LIGHT WITHIN REACH.
--- NOTE | 2020-05-28 22:15 | NUR ---
CALL LIGHT ON. pt DONE IN THE BATHROOM. REPORTED PASSING GAS, NO STOOL. AMBULATED AROUND UNIT X1.5. BACK TO BED. ASSESSMENT DONE. DRESSINGS CDI. SS DRIANAGE IN MARY DRAIN. MEDICATIONS GIVEN (SEE MAR). pt REPORTED THAT PAIN IS 4/10 AND REFUSED PRN PAIN MEDICATION AT THIS TIME. WILL CALL IF PAIN INCREASES. CALL LIGHT WITHIN REACH. PROVIDED FRESH WATER AND PUDDING.
--- NOTE | 2020-05-29 | NUR ---
CALL LIGHT ON. pt REQUESTED PRN PAIN MEDICATION FOR 6/10 PAIN. WHILE ADMINISTERING MEDICATION. pt SNEEZED. REMINDED TO BRACE WHEN COUGHING OR SNEEZING. ICE PACK PROVIDED. pt WILL CALL IF PAIN DOES NOT DECREASE. CALL LIGHT WITHIN REACH.
--- NOTE | 2020-05-29 01:10 | NUR ---
ROUNDED ON pt. RESTING IN BED. REPORTED PAIN IS "OKAY" REFUSED PAIN MEDICATION AT THIS TIME. CALL LIGHT WITHN REACH.
--- NOTE | 2020-05-29 05:00 | NUR ---
ROUNDED ON pt. SNORING. CALL LIGHT WITHIN REACH.
--- NOTE | 2020-05-29 06:10 | NUR ---
pt UP WALKING IN BANKS. ASSESSMENT DONE. pt REQUESTED PRN FOR 5/10 PAIN GIVEN WITH SCHEDULED MEDICATIONS. VITALS AND I&O RECORDED. NO FURTHER REQUESTS AT THIS TIME. CALL LIGHT WITHIN REACH.
--- NOTE | 2020-05-29 06:49 | NUR ---
IV PUMP BEEPING. SL AT THIS TIME. pt ATE A FEW BITES OF PUDDING. TOLERATED OKAY AT THIS TIME. CALL LIGHT WITHIN REACH.
--- NOTE | 2020-05-29 07:03 | NUR ---
PT RESTING SUPINE IN BED ALERT AND ORIENTED. PT DENIES NEEDS OR CONCERNS. STATES HE IS COMFORTABLE. REPORT RECEIVED FROM ANTHONY SHIFT RN.
--- NOTE | 2020-05-29 09:31 | NUR ---
PT RESTING IN SEMIFOWLERS POSITION IN BED ALERT AND ORIENTED. PT ASSESSMENT COMPLETED. CALL LIGHT AND H2O IN REACH. PT DENIES PAIN, NAUSEA OR SOB. PT DENIES NEEDS OR CONCERNS. STATES HE IS PASSING GAS AND WALKED TWICE LAST NIGHT.
--- NOTE | 2020-05-29 09:49 | NUR ---
PATIENT UP TO BR, REQUIRING NO ASSISTANCE. VITALS AND I&OS CHARTED. ORR AND CARYN EMPTIED. FRESH ICE WATER AND LINENS
--- NOTE | 2020-05-29 11:10 | NUR ---
Pt up ambulating in halls with steady gait independantly and back to bed. Call light and h2o in reach. no needs or concerns voiced.
--- NOTE | 2020-05-29 14:08 | NUR ---
Pt up ambulating in halls with steady gait independantly and back to bed. Call light and fresh h2o in reach. scheduled meds administered. Assessment completed. No further needs or concerns voiced
--- NOTE | 2020-05-29 15:33 | NUR ---
Pt alert and oriented just got back from doing multiple laps in halls. Pt reports having to cough and it aggrevated his pain. Pt states pain to abdomen is intolerable. PRN IV opiod administered per pt request. Call light and h2o in reach.
--- NOTE | 2020-05-29 17:09 | NUR ---
PATIENT AWAKE IN BED. DINNER AT BEDSIDE, ORR EMPTIED. CALL LIGHT AND PERSONAL ITEMS WITHIN REACH
--- NOTE | 2020-05-29 18:32 | NUR ---
PATIENT AMBULATING HALL
--- NOTE | 2020-05-29 19:44 | NUR ---
REPORT RECEIVED FROM NAVI CRISTINA. PT LAYING IN BED, CALL LIGHT IN REACH. A+Ox4. ON ROOM AIR. PT REPORTS NO NEEDS AT THIS TIME.
--- NOTE | 2020-05-29 20:50 | NUR ---
GOT PT VITALS, I&Os IN, PT C/O NAUSEA, RN HAS BEEN NOTIFIED, FRESH ICE WATER GIVEN, NO FURTHER REQUESTS AT THIS TIME
--- NOTE | 2020-05-29 21:25 | NUR ---
SCHEDULED MEDS ADMINISTERED. ASSESSMENT COMPLETE. VS AND I/O'S COMPLETE. PRN PAIN MEDICATION AND GI UPSET MED ADMINISTERED. IV WNL. MARY DRAIN WNL. PT STATES NO OTHER NEEDS AT THIS TIME. CALL LIGHT IN REACH.
--- NOTE | 2020-05-29 23:08 | NUR ---
SCHEDULED MEDS ADMINISTERED, REASSESSED PAIN, PT STATES IT IS NOW 4/10 AND TOLERABLE. ICE WATER REFILLED. CALL LIGHT IN REACH.
--- NOTE | 2020-05-30 00:05 | NUR ---
PT AMBULATING IDEPENDENTLY IN [place]ANKS. RN ASSISTED PT ONLY WITH GOWN.
--- NOTE | 2020-05-30 02:19 | NUR ---
ROUNDED ON PATIENT. RESTING IN BED, EYES CLOSED, LIGHTS OFF. BREATHING EVEN AND UNLABORED. NO APPARENT NEEDS AT THIS TIME. CALL LIGHT WITHIN REACH.
--- NOTE | 2020-05-30 05:02 | NUR ---
PT AMBULATING IN [place] AND REQUESTS PRN PAIN MEDS FOR 7/10 ABDOMINAL PAIN. PT DESCRIBES THIS A SHARP PAIN. PRN DILAUDID PROVIDED. PT REPORTS HE HAS BEEN "HOT AND COLD AND SWEATING". VSS. TEMP 97.6 ORALLY. FRESH ICE WATER PROVIDED.
--- NOTE | 2020-05-30 05:05 | NUR ---
ASSESSMENT COMPLETE, VS AND I/O'S COMPLETE. MARY DRAIN WNL. INCISIONS WNL, DRESSING C/D/I WITH STERI STRIPS. CALL LIGHT IN REACH.
--- NOTE | 2020-05-30 05:09 | NUR ---
PT UP AMBULATING IN HALLWAY X2 THIS SHIFT. PRN PAIN MEDICATIONS ADMINISTERED X2. PT REPORTS NO NAUSEA, BUT FEELS "HOT AND COLD" AND LOCALIZED PAIN IN ABD. INCISIONS WNL, DRESSINGS UNCHANGED C/D/I. MARY DRAIN WNL, 60 ML OUTPUT THIS SHIFT. ORR WNL. PT A+Ox4, VSS, BOWEL TONES ACTIVE. DIET ADVANCE TOLERATED/PER ORDERS.
--- NOTE | 2020-05-30 06:57 | NUR ---
SCHEDULED MEDICATIONS ADMINSTERED. PT REPORTS 3/10 PAIN AND STATES IT IS TOLERABLE, REPORTS NO NAUSEA. PT RESTING IN BED, A+O, CALL LIGHT IN REACH. NO FURTHER NEEDS AT THIS TIME.
--- NOTE | 2020-05-30 08:07 | NUR ---
REPORT RECEIVED. PT IN BED AWKAE. DENIES PAIN OR NAUSEA. CALL LIGHT IN REACH.
--- NOTE | 2020-05-30 09:54 | NUR ---
ASSESSMENT COMPLETED. PT REFUSING BREAKFAST. REPORTS NOT SLEEPING WELL LAST NIGHT AND NOT HAVING PAIN NOW SO WANTING TO REST WHILE HE CAN. REFUSED TO GET UP TOCHAIR, AGREES TO AMBULATE HALLS AFTER NAP. MIDLINE WELL APPROXIMATED. WITH STERI STRIPS. BOWEL TONES HYPERACTIVE IN ALL QUADRENTS. PT REPORTS PASSING FLATUS AND STOOLS. DENEIS NAUSEA TODAY. LUNGS CLEAR. NO EDEMA. PAIN REPORTED AT 3/10 TOLERABLE.
--- NOTE | 2020-05-30 10:51 | NUR ---
PATIENT AMBULATED IN [facility]. PATIENT NOW BACK TO BED, RN AND DR. MUÑIZ IN ROOM. CALL LIGHT IN REACH. NO FURTHER NEEDS AT THIS TIME.
--- NOTE | 2020-05-30 10:57 | NUR ---
ROUNDED WITH DR MUÑIZ. PLAN OF CARE DISCUSSED. DOMINGA JOHN'D PER ORDER. PT OUT TO AMBULATE HALLS. BACK IN BED NOW. MRAY DRAIN EMPTIED FOR 30ML SEROSANG DRAINAGE.
--- NOTE | 2020-05-30 11:30 | OR ---
[facility] [address] [place], [place] [address] Signed DATE OF OPERATION: 05/25/2020 SURGEON: Jamar Muñiz MD PREOPERATIVE DIAGNOSES: 1. History of perforated diverticulitis with mesenteric abscess. 2. Clinical colovesical fistula. 3. Colonoscopic findings showing inflammatory change in diverticula without neoplasm. POSTOPERATIVE DIAGNOSES: 1. Colovesical fistula related to diverticulitis. 2. Pelvic abscess including retroperitoneal intramesenteric abscess. 3. Dense inflammatory change of sigmoid and rectosigmoid. PROCEDURES: 1. Flexible cystoscopy. 2. Anterior resection of sigmoid with side-to-end coloproctostomy, prolonged, complicated, difficult. 3. Drainage and culture of pelvic abscess and intra mesenteric retroperitoneal abscess. 4. Repair of bladder defect. 5. Omental pedicle interposition graft. 6. Mobilization of splenic flexure. ANESTHESIA: General endotracheal; Carolynn Mak, PEN TENDER and postoperative TAP block. DRAIN: 7 mm Vinnie. INDICATIONS: This 55-year-old white man is a patient of [facility], and in February was noted to have vague abdominal pain. A CT scan was performed, which showed a dense inflammatory mass of the sigmoid mesentery. There was no sign of abscess proper. 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 The patient was treated with antibiotics, bowel rest, and so forth and had clinical improvement quite markedly. A colonoscopy was subsequently performed, which showed diverticulosis, but no sign of neoplasm and low-grade inflammatory change of the mucosa. The patient was improving clinically, but then had recurrence of symptoms and repeat CT Electronically Signed By: JAMAR MUÑIZ MD 05/30/20 1130 PATIENT NAME: AKIRA AGEE OPERATIVE REPORT DATE OF : 69 REPORT #: [id number] PHYSICIAN: JAMAR MUÑIZ MD PCP: ALLYSON HARO PAC REPORT IS CONFIDENTIAL AND NOT TO BE RELEASED WITHOUT AUTHORIZATION [facility] [address] [place], [place] [address] Signed scan was performed, which showed findings highly suggestive of abscess of the mesentery and pelvis and most likely the underlying etiology being that of perforated diverticulitis. The patient was treated once again with antibiotics, anticipating probable resection and recently has had development of pneumaturia highly consistent with colovesical fistula. At this point, I have recommended to the patient to undergo drainage of abscess as appropriate, sigmoid resection with primary anastomosis, possible proximal diversion depending on clinical findings and other indicated procedures. The risks of bleeding, infection, anastomotic failure, need for abbreviated procedures and so forth were all reviewed with him. He understands and wished to proceed. Of note, he has undergone a full bowel prep including oral antibiotics and has been on antibiotic for suppression of urinary tract infection. His urinalysis is abnormal as expected given the clinical suspicion of colovesical fistula. FINDINGS: Cystoscopy was performed at the outset of the procedure, this showed bits of fecal material within the bladder as was suspected. There was no distinct fistulous opening identified. The lobes of the prostate and urethral system were all normal. Within the abdomen was a dense hard inflammatory mass associated with the sigmoid and proximal rectum. There was an intra-abdominal/mesenteric pelvic abscess with vibha purulence and this was Gram stain and cultured. A dense fibrotic mesentery of the sigmoid was noted and dense attachments of portion of the ileum to the inflammatory process also noted. It did not cause obstruction of that segment of bowel and was freed up. There was indeed a colovesical fistula, which was identified with retrograde infusion of Enfamil formula. The defect was repaired after it from the offending segment of sigmoid colon. There was no evidence of neoplasm. Mobilization of splenic flexure was required. An omental pedicle graft was used as an interposition graft to the repaired bladder and the remaining colon. DESCRIPTION OF PROCEDURE: The patient was brought to the operating room, given a general endotracheal anesthetic. He had undergone a full bowel prep, this included oral antibiotics. Preoperative antibiotics were given as well including Ancef and Flagyl. The genitalia were prepared with Betadine solution. Using a flexible cystoscope, cystoscopy was undertaken with constant infusion of saline solution. The entry into the urethra was without impediment. The prostatic urethra and so forth all appeared normal for age. The scope was passed into the bladder, where bits of fecal material were noted Electronically Signed By: JAMAR MUÑIZ MD 05/30/20 1130 PATIENT NAME: AKIRA AGEE OPERATIVE REPORT DATE OF : [birth year] REPORT #: [id number] PHYSICIAN: JAMAR MUÑIZ MD PCP: ALLYSON HARO PAC REPORT IS CONFIDENTIAL AND NOT TO BE RELEASED WITHOUT AUTHORIZATION [facility] [address] [place] [id number] Signed as was suspected. The bladder showed no evidence of neoplasm or obvious sign of the location of the enterovesical fistula. The scope was removed and exchanged for a Mcgraw catheter. The abdomen was then clipped and prepared with a chlorhexidine solution and draped sterilely. An incision was made extending above the umbilicus to the symphysis pubis. The abdomen was entered without problem, immediately noted was a dense mass in the area of the suprapubic area showing dense coils of sigmoid and attachment of small bowel to the area as well. A very dense cicatrix between bowel loops was noted. The Bookwalter retractor was affixed to the table and portions of small bowel isolated. There was a portion of small bowel densely adherent to this process and this was freed with blunt dissection. Ultimately, the small bowel could be reflected out of the way. The bladder was contiguous with the inflammatory cicatrix and the sigmoid, this was bluntly . Further dissection into the mesentery of the sigmoid and the retroperitoneum encountered a purulent collection. This had been well visualized on previous CT scans. The purulence was opaque, thick, and light yellow petty, was gram stained and cultured. The left colon was reasonably free of the process and the offending underlying etiology was that of diverticular disease. Considerable blunt and careful manipulation of the sigmoid and left colon was undertaken, encountering a densely fibrotic mesentery corresponding to the sigmoid. Progressive, but lengthy manipulation of the bowel allowed for the freeing up of the sigmoid colon, which was in a coiled position as was commonly the case in such cases. The rectum was freed completely from the bladder. I saw no overt leak at that time from the bladder. The mid and lower rectum were entirely free of the process. This was fortunate as the more proximal rectum was densely adherent to the pelvic sidewall. This was freed with blunt dissection with all the care avoiding that area corresponding to the left ureter. An area of transection for the distal left colon was identified. The mesentery to this area was scored with electrocautery and extended onto the dense inflammatory mesentery. A 75 mm DEREK stapling device was used to transect the left colon just proximal to the sigmoid. Careful manipulation with blunt dissection and application of clips as necessary to the dense and fibrotic and thickened sigmoid mesentery was undertaken. This allowed ultimately for freeing down to the pelvic inlet. Electrocautery was used as necessary to free more fully the mesentery and application of #0 silk ties to the vascular pedicles undertaken. Ultimately, the sigmoid colon and proximal rectum were completely freed from the retroperitoneal fibrotic process. Mobilization of splenic flexure was undertaken using blunt electrocautery dissection. Ultimately, the left colon was brought down to the pelvis to allow for anastomosis. The Electronically Signed By: JAMAR MUÑIZ MD 05/30/20 1130 PATIENT NAME: AKIRA AGEE OPERATIVE REPORT DATE OF : 69 REPORT #: [id number] PHYSICIAN: JAMAR MUÑIZ MD PCP: ALLYSON HARO PAC REPORT IS CONFIDENTIAL AND NOT TO BE RELEASED WITHOUT AUTHORIZATION [facility] [address] [place], [place] [address] Signed [id number] rectum was isolated with electrocautery and ultimately secured with a right-angle bronchus clamp. The clamp was applied proximal to that and the bowel was transected and passed off the table. The specimen was opened by the circulating nurse, showing no sign of neoplasm. Plans were then made for anastomosis. In the side-to-end configuration, the coloproctostomy was undertaken in a two-layer technique of interrupted 3-0 silk sutures. A tension-free anastomosis was provided. Irrigation was undertaken more fully. Photographs were taken throughout the operation. Examination of the posterior wall of the bladder showed a dense inflammatory process and actual identification of the fistula itself was not initially evident. Retrograde infusion of Enfamil sterile formula was undertaken through the Mcgraw catheter, ultimately allowing for drainage in the area as suspected in the posterior mid bladder. This area was oversewn with interrupted 3-0 Vicryl suture. The portion of omentum based on the left vascular arcade was brought down as an interposition graft between the coloproctostomy anastomosis and the posterior wall of the bladder and secured with interrupted 2-0 Vicryl suture. A stab incision was made in the left lower quadrant. A 7 mm flat Vinnie drain was passed into the pelvis as well. Irrigation was undertaken fully throughout. Further inspection of the small bowel in the area that was freed previously, which was about 15 cm from the ileocecal valve proper was examined. The dense cicatrix that had been freed up did not appear to be impeding enteric or luminal capacity and on that there were not basis. No further intervention was undertaken on that. Small bowel was allowed to return to the abdominal cavity and in natural position. The remaining omentum was placed over the abdominal contents and plans made for closure. The midline fascia was reapproximated with running bidirectional #1 PDS suture. Subcutaneous tissue was irrigated and skin closed with running subcuticular 3-0 Vicryl. Steri-Strips were applied as was silver sponge dressing. The drain was attached to bulb suction. The slab miller operator then performed a TAP block for postoperative analgesic benefit. Blood losswas approximately 100 mL. Sponge, needle, and counts reported as correct x3. The operation was rather prolonged, complicated, and difficult extending from approximately 07:50 a.m. to 11:15 a.m. Jamar Muñiz MD Electronically Signed By: JAMAR MUÑIZ MD 05/30/20 1130 PATIENT NAME: AKIRA AGEE OPERATIVE REPORT DATE OF : [birth year] REPORT #: [id number] PHYSICIAN: JAMAR MUÑIZ MD PCP: ALLYSON HARO REPORT IS CONFIDENTIAL AND NOT TO BE RELEASED WITHOUT AUTHORIZATION [address] [place] [address] Signed /HIREN /[id number] cc: Allyson Haro PA-C Copies: ALLYSON HARO ~ Electronically Signed By: JAMAR MUÑIZ MD 05/30/20 1130 PATIENT NAME: AKIRA AGEE OPERATIVE REPORT DATE OF : 69 REPORT #: [id number] PHYSICIAN: JAMAR MUÑIZ MD PCP: ALLYSON HARO REPORT IS CONFIDENTIAL AND NOT TO BE RELEASED WITHOUT AUTHORIZATION
--- NOTE | 2020-05-30 12:25 | NUR ---
PT ORDERED YOGURT FOR LUNCH. DID NOT EAT ANY. PT SAYS IT DOESNT TASTE GOOD AND TRIED REFUSING TO EAT SOMETHING MORE. EDUCATED ON IMPORTANCE OF EATING AND NOT SKIPPING MEALS. PT DENEIS NAUSEA OR ABDOMINAL PAIN BUT IS AFRAID FROM PREVIOUS EPISODE OF NAUSEA AND SWEATING AFTER EATING YESTERDAY. COMPROMIZED ON TRYING CRACKERS AND ORDERING A MEAL IF TOLERATING WELL.
--- NOTE | 2020-05-30 12:59 | NUR ---
PT TOLERATED CRACKERS WELL. DAUGHTER TO BRING FOOD SOON. NO NAUSEA. AMBULATING HALLS NOW. VOIDED 125ML SINCE DOMINGA MONTOYA.
--- NOTE | 2020-05-30 13:08 | PATH ---
[facility] [address] [facility] [place], [place] [address] Signed SPECIMEN(S): A SIGMOID, PROXIMAL RECTUM SPECIMEN SOURCE: A. SIGMOID, PROXIMAL RECTUM CLINICAL HISTORY: Diverticulitis with abdominal abscess, perforated diverticulum. FINAL PATHOLOGIC DIAGNOSIS: Sigmoid colon and proximal rectum, dissection: - Diverticulitis with peridiverticular abscess formation and evidence of rupture. - Acute serositis as fibrous adhesions. - No evidence of malignancy. Results of immunohistochemical stains reveal the following: - POSITIVE: CD68. - NEGATIVE: AE1/AE3 COMMENT: The results of immunohistochemical stains and features of morphology demonstrate the absence of epithelial elements in the pericolonic abscess/ruptured region. CD68 confirms that the cells present are those of histiocytes. There is no change in the above diagnosis. Control slides stain positive. NAL:TWK:vlg:cml:C2NR MICROSCOPIC EXAMINATION: Histologic sections of all submitted blocks are examined by light microscopy. A focal collection of mucus is seen adjacent to the ruptured diverticulum. Within the mucus are small to medium sized histiocytoid cells containing intracytoplasmic mucin as well as scattered foreign-body type giant cells. Immunohistochemical stains (with appropriately staining controls) were performed and demonstrate these cells of interest are multinucleated histiocytes. These findings, together with the gross examination, support the pathologic diagnosis. GROSS DESCRIPTION: The specimen, labeled "ENEDINA, sigmoid colon, proximal rectum," is received in formalin and consists of a previously opened segment of large bowel (22.4 cm in length and ranging in circumference from PATIENT NAME: AKIRA AGEE PATHOLOGY DATE OF : 69 REPORT #: [id number] PHYSICIAN: DINO GONZÁLES PCP: TIERRA GIBSON PAC REPORT IS CONFIDENTIAL AND NOT TO BE RELEASED WITHOUT AUTHORIZATION [facility] [address] [place], [place] [address] Signed 3.9-5.7 cm) with attached partly hemorrhagic mesenteric adipose (extending 5.8 cm) with adherent exudate. The serosa is pink-petty and markedly congested with adherent exudate. The bowel margins are inked blue and black. Mucosa is pink-petty and edematous with multiple diverticula and areas of perforation. No masses are identified. Terminal Press Operator sections are submitted as follows: Cassette Summary: (A1) Margins, en face (A2) Diverticula (A3) Possible areas of perforation (A4) Additional bowel wall AC (under the direct supervision of a pathologist) Additional sections are submitted in cassette A5-A7 at the request of Dr. Antony CENTENO (under the direct supervision of a pathologist) The Gross Description was prepared using a voice recognition system. The report was reviewed for accuracy; however, sound-alike word errors, addition and/or deletions may occur. If there is any question about this report, please contact Client Services. ADDITIONAL NOTES: Immunohistochemical and/or in situ hybridization studies were performed on this case with the appropriate positive controls that react as expected. This test was developed and its performance characteristics determined by [facility]. It has not been cleared or approved by the U.S. Food and Drug Administration. The FDA has determined that such clearance or approval is not necessary. This test is used for clinical purposes. It should not be regarded as investigational or for research. [facility] is certified under the Clinical Laboratory Improvement Amendments of 1988 (CLIA) as qualified to perform high complexity clinical laboratory testing. PERFORMING LABORATORY: The technical component was performed by [facility], [address] [place] [id number] (Leadership Recruiter: Adry Silver MD; CLIA# [id number]). Professional interpretation was performed by [facility], [address] [address], [place] [address] (CLIA# [id number]). Diagnostician: Donald Reaves MD Pathologist PATIENT NAME: AKIRA AGEE PATHOLOGY DATE OF : 69 REPORT #: [id number] PHYSICIAN: DINO PATHOLOGY PCP: TIERRA GIBSON PAC REPORT IS CONFIDENTIAL AND NOT TO BE RELEASED WITHOUT AUTHORIZATION [facility] [address] [facility] [place], [place] [address] Signed Electronically Signed 05/30/2020 Copies: ~ PATIENT NAME: AKIRA AGEE PATHOLOGY DATE OF : 69 REPORT #: [id number] PHYSICIAN: DINO PATHOLOGY PCP: TIERRA GIBSON PAC REPORT IS CONFIDENTIAL AND NOT TO BE RELEASED WITHOUT AUTHORIZATION
--- NOTE | 2020-05-30 14:20 | NUR ---
Pt up walking in the bennett denies co. No change in plan for dc.
--- NOTE | 2020-05-30 14:32 | NUR ---
PATIENT IN BED RESTING, DAUGHTER IN ROOM. FRESH WATER GIVEN. CALL LIGHT IN REACH. NO FURTHER NEEDS AT THIS TIME.
--- NOTE | 2020-05-30 14:38 | NUR ---
in to adminster scheduled tylenol. pain reported as 5/10. ate 5 bites of burger for late lunch. tolerated well denies nausea.
--- NOTE | 2020-05-30 15:51 | NUR ---
IN TO REASSESS PAIN. PT REPORTS PAIN STILL 01/02 ALMSOT 02/02. PRN HARRIETTRIN ADMISNTERED. PT REPORTS EATING MORE OF HIS LUNCH. STILL WITH NO NAUSEA. MARY EMPTIED FOR 40 MLS. SEROSANG. PT AMBULATED HALLS AGAIN. IN BED NOW WITH CALL LIGHT IN REACH.
--- NOTE | 2020-05-30 16:20 | NUR ---
PT OUT AMBULATING HALLS.
--- NOTE | 2020-05-30 17:33 | NUR ---
PT STILL WITH INCREASE IN PAIN TO 7/10 AFTER MOTRIN. 5MG OXYCODONE ADMINSTERED. ICE PACK PROVIDED.
--- NOTE | 2020-05-30 18:15 | NUR ---
PATIENT UP TO SHOWER, IND. IVORY HANSEN. CALL LIGHT IN REACH. NO FURTHER NEEDS AT THIS TIME.
--- NOTE | 2020-05-30 18:17 | NUR ---
PT REPORTS PAIN IS IMPROVING. BLADDER SCAN COMPLETED D/T 50ML VOID. 107ML IN BLADDER. PT ISNTRUCTED TO DRINK MORE WATER AND ATTEMPT TO VOID. EDI PROGRAMMER IN ROOM SETTING UP INDEPENDENT SHOWER.
--- NOTE | 2020-05-30 18:45 | NUR ---
PT HAD GREAT DAY. DOMINGA DC'D THIS MORNING. VOIDED 175 AFTER. BLADDER SCANNED FOR 100MLS IN BLADDER. PT TO ATTEMPT TO VOID AGAIN. TYLENOL, MOTRIN AND 5 MG OXYCODONE ADMINSTERED FOR MAX 7 PAIN. OXYCODONE SEEMED TO DO THE TRICK. AMBULATED MULTIPLE TIMES IN THE BANKS. ATE DECENT AMOUT WITHOUT NAUSEA/VOMITING. NO HICCUPS. BOWEL TONES ACTIVE. ENCOURAGING PO INTAKE OF WATER. PT SHOWERED TODAY. 70ML OUTPUT FROM MARY DRAIN, SEROSANG.
--- NOTE | 2020-05-30 19:08 | NUR ---
RECEIVED REPORT FROM NAVI URRUTIA. pt RESTING IN BED NO REQUESTS AT THIS TIME. CALL LIGHT WITHIN REACH. WHITEBOARD UPDATED.
--- NOTE | 2020-05-30 21:30 | NUR ---
IN TO DO ASSESSMENT. pt REPORTED 6/10 PAIN PRN GIVEN WITH SCHEDULED MEDICATIONS (SEE MAR). ASSESSMENT DONE. pt VOIDED AT SHIFT CHANGE. MIDLINE INCISION HAS STERISTRIPS IN PLACE. DRAIN HAS ACTICOAT IN PLACE, DRY DRIANAGE NOTED. SS DRAINAGE IN BULB. VITALS AND I&O RECORDED. NO FURTHER REQUESTS AT THIS TIME. CALL LIGHT WITHIN REACH.
--- NOTE | 2020-05-30 22:45 | NUR ---
pt UP IN BANKS AMBULATING.
--- NOTE | 2020-05-31 00:17 | NUR ---
ROUNDED ON pt. RESTING IN BED. RATED PAIN 5/10. PRN GIVEN (SEE MAR). DISCUSSED PAIN MANAGEMENT AT LENGTH. NO FURTHER REQUESTS AT THIS TIME. CALL LIGHT WITHIN REACH.
--- NOTE | 2020-05-31 01:30 | NUR ---
CALL LIGHT ON. pt REQUESTED PRN PAIN MEDS, NON AVAILABLE AT THIS TIME. PROVIDED AN ICE PACK. CALL LIGHT WITHIN REACH. DISCUSSED PAIN MANAGEMENT.
--- NOTE | 2020-05-31 03:30 | NUR ---
ROUNDED ON pt. RESTING WITH EYES CLOSED, RESPIRATIONS REGULAR AND UNLABORED. CALL LIGHT WITHIN REACH.
--- NOTE | 2020-05-31 05:34 | NUR ---
pt AWAKE. VITALS AND I&O RECORDED. SCHEDULED MEDICATION GIVEN (SEE MAR). ASSESSMENT DONE. PAIN 01/02. PROVIDED FRESH ICE PACK AND WATER. CONCENTRATED URINE OUTPUT QS. NO CHANGES IN ASSESSMENT. MARY DRAIN HAS SS DRAINAGE. NO FURTHER REQUESTS. CALL LIGHT WITHIN REACH.
--- NOTE | 2020-05-31 06:49 | NUR ---
pt RESTED ON AND OFF DURING SHIFT. PAIN CONTROLLED WITH ICE PACKS AND PRN MEDICATION. INCISION HAS STERISTRIPS, NO DRAINAGE NOTED. MARY DRAIN HAS SS OUTPUT. AMBULATED IN HALLS INDEPENDENTLY. TOLERATED HAMBURGER AND BELARUSIAN FRIES WITHOUT NAUSEA. URINE CONCENTRATED, QS. USES CALL LIGHT APPROPRIATELY.
--- NOTE | 2020-05-31 07:10 | NUR ---
REPORT RECEIVED. PATIENT AWAKE AND ALERT IN BED. STATES PAIN IS 5/10. CALL LIGHT WITHIN REACH.
--- NOTE | 2020-05-31 08:32 | NUR ---
PATIENT ALERT IN BED. BREAKFAST ARRIVES. MEDS GIVEN. ASSESSMENT COMPLETE. PATIENT GIVEN OXYCODONE 5 MG FOR PAIN 01/02. ICE WATER FILLED. NO FURTHER REQUESTS AT THIS TIME.
--- NOTE | 2020-05-31 10:02 | NUR ---
PATIENT AMBULATED IN [facility]. NEW ICE PACK GIVEN. CALL LIGHT IN REACH. NO FURTHER NEEDS AT THIS TIME.
--- NOTE | 2020-05-31 11:01 | NUR ---
PATIENT UP TO BATHROOM TO VOID. NO PAIN OR DIFFICULTIES WITH VOIDING. NO BM. PASSING GAS. ABDOMINAL PAIN 12/03. MIDLINE DRESSING CLEAN, DRY, INTACT. NO EVIDENCE OF INFECTION. DRAINAGE SITE DRESSING SOILED, LIGHT BROWN. 40 ML SEROSANGINOUS FLUID FROM MARY DRAIN. IBUPROFEN GIVEN FOR PAIN. NO FURTHER REQUESTS AT THIS TIME.
[2020-05-31] MEDS ORDERED: IBUPROFEN600 MG PO (13:42)
[2020-05-31] MEDS ORDERED: ACETAMINOPHEN500 MG PO (13:43)
[2020-05-31] MEDS ORDERED: OXYCODONE HCL5 MG PO (13:43)
--- NOTE | 2020-05-31 13:59 | NUR ---
PATIENT IND IN ROOM AND GETTING DRESSED. CALL LIGHT INR EACH. NO FURTHER NEEDS AT THIS TIME.
--- NOTE | 2020-05-31 14:02 | NUR ---
PT ALERT, ORIENTED AND RESTING IN BED WITH PILLOW ON ABDOMEN. PT FEELS GOOD, NOT MUCH SLEEP AND IS UNSURE IF DC IS TODAY OR [place]. SEEMS ACCEPTING EITHER WAY. WANTS TO NAP, GAVE BLESSING AND WILL FOLLOW NEEDED
--- NOTE | 2020-05-31 14:35 | NUR ---
DISCHARGE INSTRUCTIONS GIVEN. PATIENT STATES HE FEELS READY TO GO HOME AND UNDERSTANDS DISCHARGE INSTRUCTIONS. QUESTIONS ANSWERED. PATIENT ADVISED TO CALL DR ABOUT HIS USUAL METAMUCIL INTAKE BECAUSE OF LOW FIBER DIET. PATIENT'S SON ARRIVES TO TAKE PATIENT HOME. NO FURTHER QUESTIONS. PATIENT DC HOME VIA WHEELCHAIR.
--- NOTE | 2020-06-03 10:41 | DS ---
[facility] [address], [place] [address] Signed ADMISSION DATE: 05/25/2020 DISCHARGE DATE: 05/31/2020 REASON FOR ADMISSION: This 55-year-old white man is a patient of Tierra Haro, in February was noted to have a vague abdominal pain. A CAT scan performed showed a dense inflammatory mass of sigmoid mesentery. This was suggestive of sclerosing mesenteritis. He was treated with antibiotics, bowel rest, and so forth and had clinical improvement. Colonoscopy was subsequently performed, which showed diverticulosis, but no sign of neoplasm. The patient was improving clinically, but then had recurrence of symptoms. A repeat CT scan was performed showing findings suggestive of abscess of the mesentery in the pelvis and most likely an underlying problem of perforated diverticulitis. He was treated once again with antibiotics anticipating probable resection. He recently had the onset of pneumaturia, highly consistent with colovesical fistula. The patient is admitted at this time electively to undergo sigmoid resection, repair of bladder perforation (fistula), and other indicated procedures. PERTINENT PHYSICAL EXAMINATION: GENERAL: Pleasant white male, looks to be in no distress. NECK: Trachea midline. CHEST: Clear. HEART: Regular without murmur. ABDOMEN: Obese, but soft, easily palpated. There is no focal mass of this. Some mild lower abdominal tenderness. HOSPITAL COURSE: On May 25, 2020, he underwent open sigmoid resection, following flexible cystoscopy. Cystoscopy did not demonstrate the fistula itself, but did not either show neoplasm or other unexpected finding. He underwent anterior resection of the sigmoid with a side to end coloproctostomy, which was prolonged, complicated, and difficult. Marked inflammatory change with interloop dense adhesions of sigmoid as well as secondary involvment of small bowel was noted. Drainage and culture of the pelvic abscess was also undertaken, which was located in the intra-mesenteric retroperitoneal area. He had primary repa bladder defect, which was small and an omental pedicle interposition was graft placed to further support the bladder repair and provide a barrier to the bladder from the anastomosis. Mobilization of the splenic flexure was also undertaken. His postoperative course was rather unremarkable. A pelvic drain had been placed. He was Electronically Signed By: JAMAR MUÑIZ MD 06/03/20 1041 PATIENT NAME: AKIRA AGEE DISCHARGE SUMMARY DATE OF : 69 REPORT #: [id number] PHYSICIAN: JAMAR MUÑIZ MD PCP: TIERRA HARO PAC REPORT IS CONFIDENTIAL AND NOT TO BE RELEASED WITHOUT AUTHORIZATION [facility] [address] [place] [id number] Signed noted to have a decreased hematocrit to 25.1, and had some episodes of hiccups, which ultimately resolved with Reglan and intravenous fluids and so on. He had progressive improvement. By the day of discharge, he is ambulating well, tolerating a regular diet. The Mcgraw catheter was removed several days after operation allowing complete clearance of the previously stool laden urine; he has no further complaints of pneumaturia or other similar problems. The drain has been removed. He is discharged home at this time for further convalescence. DISCHARGE MEDICATIONS: 1. Ibuprofen 600 mg p.o. q.6 hours as needed for pain, #60, refill one. 2. Oxycodone 5 mg one p.o. q.6 hours as needed for severe pain, #10. 3. Tylenol 500 mg two tablets p.o. q.6 hours p.r.n. pain, #60. 4. He will continue with his usual medications of buspirone 30 mg p.o. b.i.d. and alprazolam 0.5 mg p.o. as needed for anxiety. 5. Lisinopril/hydrochlorothiazide, 20/12.5 one tablet p.o. daily. 6. Famciclovir 1000 mg tablet daily. 7. Omeprazole 20 mg p.o. daily. 8. Amlodipine. 9. Atorvastatin 10 mg one tablet p.o. daily. DISCHARGE DIAGNOSES: 1. Complicated sigmoid diverticulitis with development of colovesical fistula, status post anterior resection, repair of bladder fistula, interposition of omental graft, and side-to-end coloproctostomy. Also s/p pre procedure cystoscopy. 2. Anxiety disorder. 3. Hypertension. FOLLOW-UP PLANS: He is return to see me in approximately 4 weeks. He will maintain a regular diet. He will keep Steri-Strips in place. He should lift no more than 20 pounds for the next 4 weeks. He is permitted to work four weeks following discharge. Jamar Muñiz MD Electronically Signed By: JAMAR MUÑIZ MD 06/03/20 1041 PATIENT NAME: AKRIA AGEE DISCHARGE SUMMARY DATE OF : 69 REPORT #: [id number] PHYSICIAN: JAMAR MUÑIZ MD PCP: TIERRA HARO PAC REPORT IS CONFIDENTIAL AND NOT TO BE RELEASED WITHOUT AUTHORIZATION [facility] [address] [place], [place] [address] Signed /[facility] /[id number] cc: Tierra Haro PA-C Copies: TIERRA HARO ~ Electronically Signed By: JAMAR MUÑIZ MD 06/03/20 1041 PATIENT NAME: AKIRA AGEE TOMASZ DISCHARGE SUMMARY DATE OF : 69 REPORT #: [id number] PHYSICIAN: JAMAR MUÑIZ MD PCP: TIERRA HARO REPORT IS CONFIDENTIAL AND NOT TO BE RELEASED WITHOUT AUTHORIZATION
== END 2020-05-31 14:58 | disposition home or self-care (01) | DRG 330 ==
LOC: DSVR 05-25 06:15 → MS 05-25 06:15 → DSVR 05-25 06:15 → MS 05-25 07:30
PROVIDERS: ADMIT Surgery; ATTEND Surgery
PROC: 0TU Urinary System, Supplement (ICD-10-PCS; 2020-05-25)
PROC: 0TJB8ZZ Inspection of Bladder, Via Natural or Artificial Opening Endoscopic (ICD-10-PCS; 2020-05-25)
PROC: 3E0T3BZ Introduction of Anesthetic Agent into Peripheral Nerves and Plexi, Percutaneous Approach (ICD-10-PCS; 2020-05-25)
PROC: 3E0T33Z Introduction of Anti-inflammatory into Peripheral Nerves and Plexi, Percutaneous Approach (ICD-10-PCS; 2020-05-25)
PROC: 0DTN0ZZ Resection of Sigmoid Colon, Open Approach (ICD-10-PCS; principal; 2020-05-25 07:30)
PROC: 0W9H0ZZ Drainage of Retroperitoneum, Open Approach (ICD-10-PCS; 2020-05-25 07:30)
DX: K57.20 Diverticulitis of large intestine with perforation and abscess without bleeding (principal); N32.1 Vesicointestinal fistula; G89.18 Other acute postprocedural pain; K30 Functional dyspepsia; I10 Essential (primary) hypertension; G47.30 Sleep apnea, unspecified; F41.9 Anxiety disorder, unspecified; R06.6 Hiccough; F32.9 Major depressive disorder, single episode, unspecified; Z79.899 Other long term (current) drug therapy; Z79.1 Long term (current) use of non-steroidal anti-inflammatories (NSAID); Z79.891 Long term (current) use of opiate analgesic; Z79.51 Long term (current) use of inhaled steroids
CPT/HCPCS: 00910; 36415; 64488; 76942; 80048; 80053; 82247; 82465; 83615; 83735; 84100; 84478; 84550; 85014; 85025; 85032; 87070; 87075; 87076; 87077; 87185; 87186; 87205; A9270; C9113; J0131; J0330; J0690; J1100; J1170; J1644; J1885; J2001; J2250; J2405; J2704; J2765; J2795; J3475; J7121

== ENCOUNTER 2021-07-14 07:45 | Day surgery (SDC) | payer OTHER ==
[~2021-07-14] VITALS: Ht 182.9 cm; Wt 93.2 kg
[~2021-07-14 07:45] MED LIST changes: +ACETAMINOPHEN500 MG PO; +IBUPROFEN600 MG PO; +OXYCODONE HCL10 MG PO; +OXYCODONE HCL5 MG PO; +PRILOSEC OTC20 MG PO; +SULFAMETHOXAZO1 EAC1 PO; +SYNTHROID25 MCG PO
--- NOTE | 2021-07-14 10:41 | NUR ---
07/14/21 1041 Jewell Barnes 1036 PATIENT ARRIVES TO PACU UNRESPONSIVE TO PAIN. ORAL AIRWAY IN PLACE. RESP EVEN AND UNLABORED, MASK AT 10 LITERS.
[2021-07-14] MEDS ORDERED: ACETAMINOPHEN500 MG PO (10:53)
[2021-07-14] MEDS ORDERED: IBUPROFEN600 MG PO (10:54)
[2021-07-14] MEDS ORDERED: OXYCODONE HCL5 MG PO (10:54)
--- NOTE | 2021-07-14 11:00 | NUR ---
PATIENT BACK TO ROOM FROM PACU ON . RECEIVED REPORT FROM TERRA MCELROY. PATIENT IS AWAKE. VSS. RATES PAIN 3/10. DENIES NAUSEA. DRESSING HAS A SMALL AMOUNT OF DRAINAGE NOTED. PROVIDED PATIENT WITH WATER AND CRACKERS. CALL LIGHT WITH IN REACH. 1114-MEDICATION GIVEN PER EMAR.
--- NOTE | 2021-07-14 13:00 | NUR ---
1300-PATIENT IS AWAKE AND LAYING IN BED. VSS. RATES PAIN 3/10. DENIES NAUSEA. DRESSING HAS A SMALL AMOUNT OF RED DRAIAGE. 1305-PATIENT UP TO RESTROOM. GAIT STEADY AND TOLERATED WELL. PAIN STAYS AT A 3/10. PATIENT VOIDED 850ML. PATIENT BACK TO ROOM TO GET DRESSED. 1315-PROVIDED PATIENT WITH DISCHARGE INSTRUCTIONS. VERBALIZED UNDERSTANDING AND ALL QUESTIONS ANSWERED. PATIENT AMBULATES TO WHEELCHAIR AND PROVIDED A RIDE TO FRONT OF HOSPITAL WHERE PATIENT SON WAS WAITING WITH THE CAR.
[2021-07-15] MEDS ORDERED: OXYCODONE HCL5 MG PO (14:53)
--- NOTE | 2021-07-21 10:06 | OR ---
[facility] [facility] [address] [place], [place] [address] Signed DATE OF OPERATION: 07/14/2021 SURGEON: Jamar Muñiz MD PREOPERATIVE DIAGNOSIS: Left inguinal hernia. POSTOPERATIVE DIAGNOSIS: Left indirect inguinal hernia. PROCEDURES: 1. Repair of left inguinal hernia. 2. Implantation of Prolene mesh underlay technique. ANESTHESIA: General endotracheal, Devin Jovany, LAUNCH STEWARD and local 10 mL of 0.25% Marcaine with epinephrine. INDICATIONS: This 56-year-old white man is a patient of Tierra Haro PA-C. He is known to me from the past, having undergone sigmoid colon resection. He has developed a left inguinal hernia, which was reducible, but uncomfortable to him. He is admitted at this time to undergo repair. He understands the risks of bleeding, infection, recurrence and so on. FINDINGS: An indirect hernia was noted. The well-developed hernia sac itself was not as distinct as commonly and therefore invagination of the herniated fatty tissue was undertaken and the attenuated fibers of the fascia transversalis incised and implantation of Prolene mesh undertaken in an underlay technique. The ilioinguinal nerve was well identified and certainly well preserved and away from the mesh itself. Cord structures were preserved as well. DESCRIPTION OF PROCEDURE: The patient was brought to the operating room, given a general endotracheal anesthetic. Preoperative antibiotic Ancef was given. Sequential compression device stockings used and heparin subcutaneously administered. The abdomen was clipped in the lower abdomen and prepared with a chlorhexidine solution and draped sterilely. An incision was made along the line of skin tension cephalad to the left pubic tubercle. Dissection was carried through the subcutaneous tissue with electrocautery and blunt dissection. The external oblique was incised along its fibers revealing the underlying cord. An Electronically Signed By: JAMAR MUÑIZ MD 07/21/21 1006 PATIENT NAME: AKIRA AGEE OPERATIVE REPORT DATE OF : 69 REPORT #: [id number] PHYSICIAN: JAMAR MUÑIZ MD PCP: TIERRA HARO PAC REPORT IS CONFIDENTIAL AND NOT TO BE RELEASED WITHOUT AUTHORIZATION [facility] [address] [place], [place] [address] Signed ilioinguinal nerve branch was dissected free from the cremasteric muscle fibers and reflected laterally around the external oblique. The cord was mobilized from the floor with blunt electrocautery dissection and encircled with a Riddhi drain. A bulky hernia was noted anterior and medial to the spermatic cord. This dissected free from the cord structures with meticulous care, ultimately identifying it to be an indirect sac. There was some attenuation of , but the dominant hernia was certainly an indirect hernia in relation to position to the inferior epigastric vessels. Although, typically a well-developed hernia sac could be noted in this case, it was a very thin hernia sac and reduction of fatty tissue noted. Rather than incised this, it was simply invaginated. An Allis clamp was applied to the tendon of the transversus abdominis and the floor of the canal was incised with electrocautery and blunt dissection was used to separate the properitoneal fat. A segment of Prolene mesh was cut to an elliptical configuration and secured in an underlay technique with interrupted 2-0 Prolene suture. The defect was cut in the graft to accommodate the cord and the tails of the graft were secured laterally. Meticulous care was maintained to avoid encumbrance of the ilioinguinal nerve, which was well identified. The cord was replaced into the canal as was the ilioinguinal nerve and 10 mL of 0.25% Marcaine with epinephrine was injected locally. The external oblique was reapproximated with a running 0-Vicryl suture. Irrigation was undertaken. Farzana layer was reapproximated with interrupted 3-0 Vicryl. The skin was then closed with running subcuticular 3-0 Vicryl. Steri-Strips were applied as well as Acticoat dressing. He tolerated the procedure well and was taken to the recovery room at conclusion, having suffered no complications. Sponge, needle, and instrument counts reported as correct x3. MD STEFANY Alberto/[facility] /[id number] cc: Tierra Haro PA-C Electronically Signed By: JAMAR MUÑIZ MD 07/21/21 1006 PATIENT NAME: AKIRA AGEE OPERATIVE REPORT DATE OF : 69 REPORT #: [id number] PHYSICIAN: JAMAR MUÑIZ MD PCP: TIERRA HARO PAC REPORT IS CONFIDENTIAL AND NOT TO BE RELEASED WITHOUT AUTHORIZATION [address] [address] Signed Copies: TIERRA HARO ~ Electronically Signed By: JAMAR MUÑIZ MD 07/21/21 1006 PATIENT NAME: AKIRA AGEE TOMASZ OPERATIVE REPORT DATE OF : 69 REPORT #: [id number] PHYSICIAN: JAMAR MUÑIZ MD PCP: TIERRA HARO REPORT IS CONFIDENTIAL AND NOT TO BE RELEASED WITHOUT AUTHORIZATION
== END 2021-07-14 13:15 | disposition home or self-care (01) ==
LOC: DS 07:45
PROVIDERS: ATTEND Surgery
PROC: 0YU60JZ Supplement Left Inguinal Region with Synthetic Substitute, Open Approach (ICD-10-PCS; principal; 2021-07-14 08:15)
DX: K40.90 Unilateral inguinal hernia, without obstruction or gangrene, not specified as recurrent (principal); K57.20 Diverticulitis of large intestine with perforation and abscess without bleeding; I10 Essential (primary) hypertension; K59.00 Constipation, unspecified; Z87.438 Personal history of other diseases of male genital organs
CPT/HCPCS: 00830; A9270; C1781; J0690; J1100; J1644; J1885; J2001; J2405; J2704; J3010; J7121

== ENCOUNTER 2021-07-15 13:59 | Emergency (ER) | payer OTHER ==
[~2021-07-15] VITALS: Ht 182.9 cm; Wt 93.0 kg
[2021-07-15] MEDS ORDERED: OXYCODONE HCL5 MG PO (14:53)
== END 2021-07-15 14:47 | disposition home or self-care (01) ==
LOC: ED 13:59
DX: L76.22 Postprocedural hemorrhage of skin and subcutaneous tissue following other procedure (principal); Z87.891 Personal history of nicotine dependence; Z79.899 Other long term (current) drug therapy
CPT/HCPCS: 99282

== ENCOUNTER 2025-06-11 11:23 | Emergency (ER) | payer OTHER ==
[~2025-06-11] VITALS: Ht 182.9 cm; Wt 75.0 kg
[~2025-06-11 11:23] MED LIST changes: +TAMSULOSIN HCL0.4 MG PO
[2025-06-11] MEDS ORDERED: HYDROCODONE/ACETA 5/325 TAB PO ONE (13:00)
[2025-06-11] MEDS ORDERED: IBUPROFEN 600 MG TAB PO ONE (13:00)
[2025-06-11] MEDS ORDERED: METHYLPREDNISOLO4 M1 PO (15:32)
[2025-06-11] MEDS ORDERED: PERCOCET 7.5-31 EACH PO (15:32)
[2025-06-11 15:35] VITALS: BP 144/82
== END 2025-06-11 15:42 | disposition home or self-care (01) ==
LOC: ED 11:23
DX: M54.50 Low back pain, unspecified (principal); I10 Essential (primary) hypertension; Z87.891 Personal history of nicotine dependence; Z79.899 Other long term (current) drug therapy
CPT/HCPCS: 72148; 99283-25; A9270